=== PATIENT | female | born 1955 | race Caucasian/White ===

== ENCOUNTER → 2016-11-07 | Outpatient (CLI) | payer OTHER ==
[~2016-11-07] MED LIST: APIX1TAB3 PO; ATOR10TA88 PO; HYDR25TA5 PO
--- NOTE | 2016-11-09 14:07 | MAMMOGRAPHY REPORT ---
THIS REPORT HAS BEEN AMENDED. BILATERAL DIGITAL SCREENING MAMMOGRAM TOMOSYNTHESIS WITH CAD: 11/07/2016 CLINICAL HISTORY: Routine screening examination. TECHNIQUE: Breast tomosynthesis in addition to standard 2D mammography was performed. Current study was also evaluated with a Computer Aided Detection (CAD) system. COMPARISON: No prior exams were available for comparison. BREAST COMPOSITION: There are scattered areas of fibroglandular density in both breasts. FINDINGS: There are tiny subcentimeter circumscribed masses scattered in the breasts. Given the num erous bilateral circumscribed nature this is considered a benign mammographic pattern. There are a few benign-appearing microcalcifications. No suspicious spiculated or irregular mass, architectural distortion or cluster of suspicious microcalcifications is seen. IMPRESSION: ACR BI-RADS CATEGORY 1: NEGATIVE There is no mammographic evidence of malignancy. Prior outside mammograms are currently being reque sted and if obtained they will be reviewed, compared to the current exam to assess for any more subt le changes, and an addendum will be made to this report. Otherwise, a 1 year screening mammogram is recommended. The patient will receive written notification of the results. Approximately 10% of breast cancers are not detected with mammography. A negative mammographic repor t should not delay biopsy if a clinically suggestive mass is present. Ruthie Guerra M.D. ay/:11/08/2016 21:42:21 Director Nurses' Registry: Yocasta MARVIN(Irina)(Sudeep), [facility] letter sent: Normal 10/17 BI-RADS Code: ACR BI-RADS Category 1: Negative AMENDMENT: 11/15/2016 Ruthie Guerra M.D. Prior outside mammograms from [email or web address] dated 12/23/2011 and 04/12/2013, [facility] dated 05/09/2014 and [facility] dated 10/30/2015 became available for review. There has been no significant interval change compared to the outside exams. No suspicious mass, architectural dis tortion, developing asymmetry or cluster of suspicious micro-calcifications is seen. Recommend foll ow-up in 1 year for routine mammography. Amended BI-RADS: ACR BI-RADS Category 1: Negative letter sent: Normal 2
== END | disposition home or self-care (01) ==
LOC: C.MAMM 13:38 → MERGE 13:38
PROVIDERS: ATTEND Obstetrics & Gynecology
DX: Z12.31 Encounter for screening mammogram for malignant neoplasm of breast (principal)

== ENCOUNTER → 2017-01-13 | Outpatient (CLI) | payer OTHER ==
[~2017-01-13] MED LIST changes: +ATOR10TA82 PO; -ATOR10TA88 PO
== END | disposition home or self-care (01) ==
LOC: C.PAPS 10:47 → MERGE 10:47
PROVIDERS: ATTEND Obstetrics & Gynecology
DX: Z01.419 Encounter for gynecological examination (general) (routine) without abnormal findings (principal)

== ENCOUNTER → 2017-04-14 | Outpatient (CLI) | payer OTHER ==
[~2017-04-14] MED LIST changes: -ATOR10TA82 PO; +ATOR10TA88 PO
== END | disposition home or self-care (01) ==
LOC: C.LAB1850 13:45 → MERGE 13:45
PROVIDERS: ATTEND Internal Medicine Cardiovascular Disease
DX: I10 Essential (primary) hypertension (principal); R55 Syncope and collapse; R00.2 Palpitations

== ENCOUNTER 2017-06-14 11:53 | Emergency (ER) | payer BC, OTHER ==
[~2017-06-14] VITALS: Ht 162.6 cm; Wt 75.4 kg
[2017-06-14 12:08] VITALS: TEMP 37.1; Ht 162.6 cm; Wt 75.4 kg
[2017-06-14] MEDS ORDERED: DILTIAZEM BOLUS / DRIP IV STA (12:22)
[2017-06-14] MEDS ORDERED: SODIUM CHLORIDE 0.9% 1000ML 1,000 ML IV STA (12:22)
[2017-06-14] MEDS ORDERED: SODIUM CHLORIDE 0.9% 1000ML 500 ML IV STA (12:22)
[2017-06-14 12:25] VITALS: O2SAT 95
--- NOTE | 2017-06-14 12:28 | EMERGENCY ROOM VISIT NOTE ---
History Report prepared by Ritchie: Carrington Carrillo Under the Supervision of: Dr. Silvestre Katz M.D. First contact with patient: 12:15 Chief Complaint: CARDIAC ASSESSMENT Stated Complaint: new onset af Nursing Triage Summary: Atrial fib with rapid RVR. Patient had endoscopy today and post procedure patient went into AFIB with RVR. Patient has a hx diagnosed in April and has been on Eliquis since then. Patient has not taken Eliquis since Monday night for the endoscopy today. No CP or SOB. History of Present Illness The patient is a 62 year old female who presents to the Emergency Room with an episode of atrial fibrillation that occurred prior to arrival this morning. The patient came from [facility] end[facility] and, post-procedure, the patient went into atrial fibrillation with RVR. She was then sent here for evaluation. The patient says that she was diagnosed with atrial fibrillation in April, and was put on Eliquis. The last dose she has taken of the Eliquis was 3 days ago. She adds that she is not always in atrial fibrillation. The patient states that she can sometimes tell when she is in atrial fibrillation, as her heart pounds, and she gets nauseous with a headache. She notes that she has an appointment with Dr. Magallon of [facility] cardiology in 2 weeks. The patient adds that she is short of breath, most likely due to anxiety. She denies any chest pain. Source of History: patient Onset: Prior to arrival this morning Position: other (heart) Quality: other (atrial fibrillation with RVR) Timing: other (episode) Associated Symptoms: + headache, + SOB (most likely due to anxiety), + nausea, No chest pain Note: Associated symptoms: Heart pounding. Short of breath most likely due to anxiety. Review of Systems See HPI for pertinent positives & negatives. A total of 10 systems reviewed and were otherwise negative. Past Medical & Surgical Medical Problems: (1) Afib Family History FHx: arrhythmia Social History Smoking Status: Never Smoker Marital Status: single Housing Status: lives with family Current/Historical Medications Scheduled Apixaban (Eliquis), 5 MG PO BID Atorvastatin (Lipitor), 10 MG PO DAILY Hydrochlorothiazide (Hydrochlorothiazide), 25 MG PO DAILY Allergies Coded Allergies: Erythromycin (Unverified Allergy, Severe, HIVES, 06/14/17) Penicillins (Unverified Allergy, Severe, HIVES, 06/14/17) Tetracycline (Unverified Allergy, Severe, HIVES, 06/14/17) Propoxyphene (Unverified Adverse Reaction, Severe, DIZZY, 06/14/17) Sulfa Antibiotics (Unverified Adverse Reaction, Severe, INFLAMMATION, 06/14) Uncoded Allergies: IV CONTRAST DYES (Allergy, Severe, INTENSE HEAT FROM THE INSIDE OUT, ) LAYTEX (Adverse Reaction, Unknown, RASH, 06/14/17) Physical Exam Vital Signs Date Time Temp Pulse Resp B/P (MAP) Pulse Ox O2 Delivery O2 Flow Rate FiO2 06/14/17 14:21 90 21 112/68 99 Room Air 06/14/17 13:56 85 17 112/75 98 Room Air 06/14/17 13:38 81 06/14/17 13:23 84 20 121/75 96 Room Air 06/14/17 12:25 95 Room Air 06/14/17 12:18 84 24 130/77 97 Room Air 06/14/17 12:12 145 06/14/17 12:08 37.1 119 24 140/122 97 Room Air 06/14/17 12:03 97 Physical Exam GENERAL: Patient is in no acute distress. HEENT: No acute trauma, normocephalic atraumatic, mucous membranes moist, no nasal congestion, no scleral icterus. NECK: No stridor, no adenopathy, no meningismus, trachea is midline. LUNGS: Clear to auscultation bilaterally, no wheeze, no rhonchi, breath sounds equal. HEART: Without murmurs gallops or rubs, regular rate and rhythm. ABDOMEN: Soft, nontender, bowel sounds positive, no hernias, no peritonitis. EXTREMITIES: No cyanosis or edema, full range of motion of all the joints without pain or difficulty, no signs for acute trauma. NEUROLOGIC: Oriented x 3, no acute motor or sensory deficits, no focal weakness. SKIN: No rash, no jaundice, no diaphoresis. Medical Decision & Procedures ER Provider Diagnostic Interpretation: X-ray results as stated below per interpretation by me and the radiologist: CHEST ONE VIEW PORTABLE HISTORY: 62 years-old Female EVALUATE ALTERED MENTAL STATUS/WEAKNESS COMPARISON: None available TECHNIQUE: Portable upright AP view of the chest. FINDINGS: The cardiac, mediastinal and hilar silhouettes are within normal limits. There is minimal atherosclerosis of the aorta. There is no pneumothorax or pleural effusion. Linear subsegmental opacities of the left lung base are seen suggesting atelectasis. The bones appear grossly intact. IMPRESSION: Subsegmental atelectasis of the left lung base without acute cardiopulmonary process. The above report was generated using voice recognition software. It may contain grammatical, syntax or spelling errors. Electronically signed by: Kt Ohara M.D. 06/14/2017 12:42 PM Dictated Date/Time: 06/14/2017 12:41 PM Laboratory Results 06/14/17 12:05 Red Blood Count 4.49, Mean Corpuscular Volume 90.0, Mean Corpuscular Hemoglobin 31.4, Mean Corpuscular Hemoglobin Concent 34.9, Mean Platelet Volume 9.6, Neutrophils (%) (Auto) 60.8, Lymphocytes (%) (Auto) 27.6, Monocytes (%) (Auto) 9.9, Eosinophils (%) (Auto) 1.1, Basophils (%) (Auto) 0.4, Neutrophils # (Auto) 3.30, Lymphocytes # (Auto) 1.50, Monocytes # (Auto) 0.54, Eosinophils # (Auto) 0.06, Basophils # (Auto) 0.02 06/14/17 12:05 Test 06/14/17 12:05 White Blood Count 5.43 K/uL (4.8-10.8) Red Blood Count 4.49 M/uL (4.2-5.4) Hemoglobin 14.1 g/dL (12.0-16.0) Hematocrit 40.4 % (37-47) Mean Corpuscular Volume 90.0 fL (80-100) Mean Corpuscular Hemoglobin 31.4 pg (25-34) Mean Corpuscular Hemoglobin Concent 34.9 g/dl (32-36) Platelet Count 286 K/uL (130-400) Mean Platelet Volume 9.6 fL (7.4-10.4) Neutrophils (%) (Auto) 60.8 % Lymphocytes (%) (Auto) 27.6 % Monocytes (%) (Auto) 9.9 % Eosinophils (%) (Auto) 1.1 % Basophils (%) (Auto) 0.4 % Neutrophils # (Auto) 3.30 K/uL (1.4-6.5) Lymphocytes # (Auto) 1.50 K/uL (1.2-3.4) Monocytes # (Auto) 0.54 K/uL (0.11-0.59) Eosinophils # (Auto) 0.06 K/uL (0-0.5) Basophils # (Auto) 0.02 K/uL (0-0.2) RDW Standard Deviation 40.7 fL (36.4-46.3) RDW Coefficient of Variation 12.5 % (11.5-14.5) Immature Granulocyte % (Auto) 0.2 % Immature Granulocyte # (Auto) 0.01 K/uL (0.00-0.02) Prothrombin Time 11.3 SECONDS (9.0-12.0) Prothromb Time International Ratio 1.1 (0.9-1.1) Activated Partial Thromboplast Time 28.8 SECONDS (21.0-31.0) Partial Thromboplastin Ratio 1.1 Anion Gap 6.0 mmol/L (3-11) Est Creatinine Clear Calc Drug Dose 72.5 ml/min Estimated GFR () 92.3 Estimated GFR (Non- 79.7 BUN/Creatinine Ratio 12.8 (10-20) Calcium Level 8.8 mg/dl (8.5-10.1) Magnesium Level 2.2 mg/dl (1.8-2.4) Total Bilirubin 0.6 mg/dl (0.2-1) Aspartate Amino Transf (AST/SGOT) 21 U/L (15-37) Alanine Aminotransferase (ALT/SGPT) 22 U/L (12-78) Alkaline Phosphatase 92 U/L (45-117) Troponin I < 0.015 ng/ml (0-0.045) Total Protein 7.5 gm/dl (6.4-8.2) Albumin 3.6 gm/dl (3.4-5.0) Globulin 3.9 gm/dl (2.5-4.0) Albumin/Globulin Ratio 0.9 (0.9-2) Thyroid Stimulating Hormone (TSH) 0.911 uIu/ml (0.300-4.500) Laboratory results reviewed by me. Medications Administered Medications (Trade) Dose Ordered Sig/Corby Route Start Time Stop Time Status Last Admin Dose Admin Sodium Chloride 500 ml @ 999 mls/hr Q31M STAT IV 06/14/17 12:22 06/14/17 12:52 DC 06/14/17 12:35 999 MLS/HR Sodium Chloride 1,000 ml @ 200 mls/hr Q5H STAT IV 06/14/17 12:22 06/14/17 17:21 06/14/17 12:22 200 MLS/HR Potassium Chloride (Klor-Con M10) 40 meq NOW STAT PO 06/14/17 13:23 06/14/17 13:24 DC 06/14/17 14:00 40 MEQ Sodium Chloride 500 ml @ 999 mls/hr Q31M STAT IV 06/14/17 13:23 06/14/17 13:53 DC 06/14/17 13:30 999 MLS/HR ECG Indication: nausea Rate (beats per minute): 114 Rhythm: other (rapid afib) Findings: no acute ischemic change, no ectopy, other (nonspecific ST change) Change: Second ECG: Normal sinus rhythm at 82 bpm, nonspecific ST change, no ectopy. ED Course 1220: The patient was evaluated in room C2B. A complete history and physical exam was performed. 1222: Ordered NSS 1000 ml @ 200 mls/hr IV, NSS 500 ml @ 999 mls/hr IV. 1323: Ordered Klor-Con M10 40 meq PO. 1406: I reevaluated the patient and she is feeling fine and in sinus rhythm. 1411: I discussed the patient with Dr. Magallon - [facility] cardiology - he has an appointment for her at 1600 today, and we will discharge the patient to the appointment. 1417: Reevaluated the patient and she is resting comfortably. Discussed results and discharge instructions: she verbalized understanding and agreement. The patient is ready for discharge. Medical Decision Differential diagnosis includes but is not limited to atrial fibrillation or atrial flutter, dehydration, electrolyte imbalance, thyroid disorder, LA, cardiac ischemia, infection. There is no leukocytosis or concerning anemia. Potassium slightly low, no kidney failure. No hepatitis. The patient's thyroid appears to be functioning within normal limits. EKG shows a rapid A. fib without any acute ischemia. Cardiac enzyme testing times one is not consistent with acute cardiac injury. Chest x-ray does not show CHF or pneumonia, no mediastinal widening. The patient was breaking in and out of atrial fibrillation. She was asymptomatic. She was given IV saline, oral potassium. She is now in a sinus rhythm, she looks and feels well. She has not required any type of antiarrhythmic. I discussed the case with Dr. Magallon of cardiology. The patient is going to be seen in their office in one hour. She is stable for discharge. She was told the results of all her testing. In short, her A. fib has spontaneously resolved. Medication Reconcilliation Current Medication List: was personally reviewed by me Blood Pressure Screening Patient's blood pressure: Normal blood pressure Consults Time Called: 1408 Consulting Physician: Dr. Naun CASTELLANOS cardiology Returned Call: 1411 I discussed the patient with Dr. Naun CASTELLANOS cardiology - he has an appointment for her at 1600 today, and we will discharge the patient to the appointment. Impression Primary Impression: Rapid atrial fibrillation Scribe Attestation The scribe's documentation has been prepared under my direction and personally reviewed by me in its entirety. I confirm that the note above accurately reflects all work, treatment, procedures, and medical decision making performed by me. Departure Information Dispostion Home / Self-Care Referrals Jhon Magallon MD Forms IMPORTANT VISIT INFORMATION Patient Instructions My [facility] Additional Instructions report to the cardiology office today at 4 pm return for any return of symptoms stay well hydrated
[2017-06-14] MEDS ORDERED: DILTIAZEM HCL INJ 125 MG in DEXTROSE 5% 100ML IV PRN (12:30)
--- NOTE | 2017-06-14 12:44 | DIAGNOSTIC IMAGING REPORT ---
CHEST ONE VIEW PORTABLE HISTORY: 62 years-old Female EVALUATE ALTERED MENTAL STATUS/WEAKNESS COMPARISON: None available TECHNIQUE: Portable upright AP view of the chest. FINDINGS: The cardiac, mediastinal and hilar silhouettes are within normal limits. There is minimal atherosclerosis of the aorta. There is no pneumothorax or pleural effusion. Linear subsegmental opacities of the left lung base are seen suggesting atelectasis. The bones appear grossly intact. IMPRESSION: Subsegmental atelectasis of the left lung base without acute cardiopulmonary process. The above report was generated using voice recognition software. It may contain grammatical, syntax or spelling errors. Electronically signed by: Kt Ohara M.D. 06/14/2017 12:42 PM Dictated Date/Time: 06/14/2017 12:41 PM
[2017-06-14] MEDS ORDERED: PATIENT'S ALLERGY INFO NEEDS ENTERED SCH (12:45)
[2017-06-14 13:02] LABS: BASO % 0.4 %; BASO ABS # 0.02 K/uL (0-0.2); COMPLETE YES; EOS % 1.1 %; HEMATOCRIT 40.4 % (37-47); IG% 0.2 %; INR 1.1 (0.9-1.1); LYMPH % 27.6 %; MEAN CORPUSCULAR HEMOGLOBIN 31.4 pg (25-34); MEAN CORPUSCULAR HGB CONC 34.9 g/dl (32-36); MEAN PLATELET VOLUME 9.6 fL (7.4-10.4); MONO % 9.9 %; NEUT % 60.8 %; PARTIAL THROMBOPLASTIN RATIO 1.1; PLATELET COUNT 286 K/uL (130-400); PROTHROMBIN TIME (PATIENT) 11.3 SECONDS (9.0-12.0); RED BLOOD COUNT 4.49 M/uL (4.2-5.4); WHITE BLOOD COUNT 5.43 K/uL (4.8-10.8)
[2017-06-14 13:10] LABS: ALT/SGPT 22 U/L (12-78); BLOOD UREA NITROGEN 10 mg/dl (7-18); BUN/CREATININE RATIO 12.8 (10-20); CALCIUM 8.8 mg/dl (8.5-10.1); CARBON DIOXIDE 31 mmol/L (21-32); CHLORIDE 98 mmol/L (98-107); CREATININE 0.79 mg/dl (0.60-1.20); GLUCOSE 148 mg/dl (70-99); MAGNESIUM 2.2 mg/dl (1.8-2.4); POTASSIUM 3.1 mmol/L (3.5-5.1); SODIUM 135 mmol/L (136-145)
[2017-06-14 13:20] LABS: ALB/GLOB RATIO 0.9 (0.9-2); ALKALINE PHOSPHATASE 92 U/L (45-117); AST/SGOT 21 U/L (15-37); THYROID STIMULATING HORMONE 0.911 uIu/ml (0.300-4.500)
[2017-06-14] MEDS ORDERED: SODIUM CHLORIDE 0.9% 500ML 500 ML IV STA (13:23)
[2017-06-14] MEDS ORDERED: POTASSIUM CHLORIDE 10 MEQ TABCR PO STA (13:23)
[2017-06-14] MEDS ORDERED: APIX1TAB3 PO (13:31)
[2017-06-14] MEDS ORDERED: HYDR25TA5 PO (13:31)
[2017-06-14] MEDS ORDERED: ATOR10TA88 PO (13:31)
[2017-06-14 14:21] VITALS: BP 112/68; PULSE 90; O2SAT 99
== END 2017-06-14 14:47 | disposition home or self-care (01) ==
LOC: EDBD 11:53 → C.EDC 11:55
DX: I48.91 Unspecified atrial fibrillation (principal); Z79.899 Other long term (current) drug therapy

== ENCOUNTER → 2017-06-14 | Outpatient (CLI) | payer OTHER ==
[2017-06-14 14:01] LABS: BLOOD UREA NITROGEN 11 mg/dl (7-18); BUN/CREATININE RATIO 13.9 (10-20); CALCIUM 8.7 mg/dl (8.5-10.1); CARBON DIOXIDE 30 mmol/L (21-32); CHLORIDE 97 mmol/L (98-107); CREATININE 0.77 mg/dl (0.60-1.20); GLUCOSE 204 mg/dl (70-99); POTASSIUM 2.6 mmol/L (3.5-5.1); SODIUM 136 mmol/L (136-145)
--- NOTE | 2017-06-30 09:32 | CODING QUERY NO DIAGNOSIS ---
TREATMENT RENDERED WITHOUT A DIAGNOSIS : 05/04/1754 To promote full compliance with coding requirements relating to patient care, physician participation is requested in all cases of boat designer uncertainty. Please assist us with providing a diagnosis/symptom for the test(s) below: A diagnosis/symptom was not documented on your Order. A valid diagnosis/symptom is required to bill all insurances. Please remember that we are unable to code a diagnosis of rule out, probable, possible, questionable, or suspected. Tests that require a diagnosis: DOS: 06/14/17 * MAGNESIUM DIAGNOSIS: * PARTIAL RENAL PROFILE DIAGNOSIS: Provider Signature: Date: Thank you Yvonne Herrera Health Information Management Once completed, please kindly fax back to [phone] For questions please call [phone]
== END | disposition home or self-care (01) ==
LOC: MERGE 12:28 → C.LABSPEC 12:28
PROVIDERS: ATTEND Internal Medicine Gastroenterology
DX: I48.91 Unspecified atrial fibrillation (principal)

== ENCOUNTER → 2017-07-03 | Outpatient (CLI) | payer OTHER ==
[2017-07-03 12:19] LABS: BLOOD UREA NITROGEN 20 mg/dl (7-18); BUN/CREATININE RATIO 31.2 (10-20); CALCIUM 9.3 mg/dl (8.5-10.1); CARBON DIOXIDE 30 mmol/L (21-32); CHLORIDE 107 mmol/L (98-107); CREATININE 0.65 mg/dl (0.60-1.20); GLUCOSE 92 mg/dl (70-99); POTASSIUM 4.1 mmol/L (3.5-5.1); SODIUM 143 mmol/L (136-145)
== END | disposition home or self-care (01) ==
LOC: C.LAB1850 10:21
PROVIDERS: ATTEND Internal Medicine Cardiovascular Disease
DX: I10 Essential (primary) hypertension (principal); R00.2 Palpitations; I48.91 Unspecified atrial fibrillation; E87.6 Hypokalemia

== ENCOUNTER → 2017-10-10 | Outpatient (CLI) | payer OTHER ==
[~2017-10-10] MED LIST changes: +ATOR10TA82 PO; -ATOR10TA88 PO
== END | disposition home or self-care (01) ==
LOC: C.LAB1850 09:44
PROVIDERS: ATTEND Family Medicine
DX: Z11.59 Encounter for screening for other viral diseases (principal)

== ENCOUNTER → 2017-11-08 | Outpatient (CLI) | payer OTHER ==
--- NOTE | 2017-11-08 15:41 | MAMMOGRAPHY REPORT ---
BILATERAL DIGITAL SCREENING MAMMOGRAM TOMOSYNTHESIS WITH CAD: 11/08/2017 CLINICAL HISTORY: Routine screening. Patient has no complaints. TECHNIQUE: Breast tomosynthesis in addition to standard 2D mammography was performed. Current study was also evaluated with a Computer Aided Detection (CAD) system. COMPARISON: Comparison is made to exams dated: 05/09/2014 mammogram, 04/12/2013 mammogram, 12/23/2011 ma mmogram, 11/07/2016 mammogram, and 10/30/2015 mammogram - [facility]. BREAST COMPOSITION: There are scattered areas of fibroglandular density in both breasts. FINDINGS: No suspicious masses, calcifications, or areas of architectural distortion are noted in ei ther breast. There has been no significant interval change compared to prior exams. A linear scar ma rker denotes a scar on the left upper outer breast. IMPRESSION: ACR BI-RADS CATEGORY 2: BENIGN There is no mammographic evidence of malignancy. A 1 year screening mammogram is recommended. The pa tient will receive written notification of the results. Approximately 10% of breast cancers are not detected with mammography. A negative mammographic report should not delay biopsy if a clinically suggestive mass is present. Margaret Morales M.D. /:11/08/2017 12:36:48 Perfect Binder Feeder Offbearer: Drea MARVIN(Irina)(M), [facility] letter sent: Normal 1/2 BI-RADS Code: ACR BI-RADS Category 2: Benign
== END | disposition home or self-care (01) ==
LOC: C.MAMM 10:55 → MERGE 11:10
PROVIDERS: ATTEND Obstetrics & Gynecology
DX: Z12.31 Encounter for screening mammogram for malignant neoplasm of breast (principal)

== ENCOUNTER → 2018-06-01 | Outpatient (CLI) | payer OTHER ==
[~2018-06-01] MED LIST changes: +ASCO10003 PO; +CHOL20007 PO; +EPP3/2 IM; +FLEC50TA20 PO; +METO50TA16 PO; +MOME220A INH; +MONT1TAB3 PO; +MULT-1027 PO; +OMEG100046 PO; +VNTHFA/IN INH
[2018-06-01 15:00] LABS: HEMATOCRIT 43.3 % (37-47); HEMOGLOBIN 14.7 g/dL (12.0-16.0); MEAN CELL VOLUME 93.7 fL (80-100); MEAN CORPUSCULAR HEMOGLOBIN 31.8 pg (25-34); MEAN CORPUSCULAR HGB CONC 33.9 g/dl (32-36); MEAN PLATELET VOLUME 10.5 fL (7.4-10.4); PLATELET COUNT 267 K/uL (130-400); RED CELL DISTRIBUTION WIDTH CV 13.9 % (11.5-14.5); RED CELL DISTRIBUTION WIDTH SD 46.9 fL (36.4-46.3); WHITE BLOOD COUNT 8.94 K/uL (4.8-10.8)
[2018-06-01 15:12] LABS: BLOOD UREA NITROGEN 25 mg/dl (7-18); CALCIUM 9.2 mg/dl (8.5-10.1); CARBON DIOXIDE 26 mmol/L (21-32); CREATININE 0.88 mg/dl (0.60-1.20); GLUCOSE 134 mg/dl (70-99); POTASSIUM 3.9 mmol/L (3.5-5.1); SODIUM 141 mmol/L (136-145)
== END | disposition home or self-care (01) ==
LOC: C.LAB1850 13:53
PROVIDERS: ATTEND Internal Medicine Cardiovascular Disease
DX: I48.91 Unspecified atrial fibrillation (principal)

== ENCOUNTER 2019-09-25 09:54 | Inpatient (IN) ==
--- NOTE | 2019-08-26 12:48 | PAT Medication Instructions ---
Medication Instructions Date of Service August 26, 2019 Home Medications Medication Instructions Recorded apixaban 5 mg tablet 5 mg PO BID #180 tab 07/03/19 atorvastatin 10 mg tablet 10 mg PO QAM #90 tab 07/03/19 flecainide 50 mg tablet 50 mg PO Q12 #180 tab 07/03/19 metoprolol tartrate 50 mg tablet 50 mg PO BID #180 tab 07/03/19 ascorbic acid (vitamin C) 500 mg PO QAM 02/16/19 [History Confirmed 08/21/19] cholecalciferol (vitamin D3) [Vitamin D3] 3,000 unit PO QAM 02/16/19 [History Confirmed 08/21/19] epinephrine [EpiPen] 0.3 mg IM UD PRN 02/16/19 [History Confirmed 08/21/19] magnesium 250 mg PO QAM 02/16/19 [History Confirmed 08/21/19] mometasone [Asmanex Twisthaler] 2 puff INHALATION QAM 02/16/19 [History Confirmed 08/21/19] montelukast [Singulair] 10 mg PO PM 02/16/19 [History Confirmed 08/21/19] multivitamin 1 tab PO QPM 02/16/19 [History Confirmed 08/21/19] omega 6-prv-lvl-fish oil [Fish Oil] 1 cap PO QAM 02/16/19 [History Confirmed 08/21/19] levalbuterol HFA 45 mcg/actuation aerosol inhaler 1 puffs INH Q4H PRN apixaban 5 mg tablet 5 mg PO BID #180 tab 07/03/19 [Rx Confirmed 08/21/19] atorvastatin 10 mg tablet 10 mg PO QAM #90 tab 07/03/19 [Rx Confirmed 08/21/19] flecainide 50 mg tablet 50 mg PO Q12 #180 tab 07/03/19 [Rx Confirmed 08/21/19] metoprolol tartrate 50 mg tablet 50 mg PO BID #180 tab 07/03/19 [Rx Confirmed 08/21/19] famotidine 20 mg PO BID 08/21/19 [History Confirmed 08/21/19] Continue as directed epinephrine [EpiPen] 0.3 mg IM UD PRN (if needed) ASK your prescriber and surgeon apixaban 5 mg tablet 5 mg PO BID (in order for spinal anesthesia, Apixaban/Eliquis needs to be stopped 72 hours/3 days before surgery. Please check if okay with doctor that prescribes this to you) STOP taking 2 weeks before surgery (or as soon as possible if surgery is within 2 weeks) omega 4-vnv-qsw-fish oil [Fish Oil] 1 cap PO QAM 02/16/19 [History Confirmed 08/21/19] DO NOT take the morning of surgery ascorbic acid (vitamin C) 500 mg PO QAM 02/16/19 [History Confirmed 08/21/19] cholecalciferol (vitamin D3) [Vitamin D3] 3,000 unit PO QAM 02/16/19 [History Confirmed 08/21/19] magnesium 250 mg PO QAM 02/16/19 [History Confirmed 08/21/19] famotidine 20 mg PO BID 08/21/19 [History Confirmed 08/21/19] Take morning of surgery With a small sip of water, OTHERWISE NOTHING TO EAT OR DRINK AFTER MIDNIGHT: mometasone [Asmanex Twisthaler] 2 puff INHALATION QAM 02/16/19 [History Confirmed 08/21/19] levalbuterol HFA 45 mcg/actuation aerosol inhaler 1 puffs INH Q4H PRN (if needed) atorvastatin 10 mg tablet 10 mg PO QAM #90 tab 07/03/19 [Rx Confirmed 08/21/19] flecainide 50 mg tablet 50 mg PO Q12 #180 tab 07/03/19 [Rx Confirmed 08/21/19] metoprolol tartrate 50 mg tablet 50 mg PO BID #180 tab 07/03/19 [Rx Confirmed 08/21/19] Take evening before surgery montelukast [Singulair] 10 mg PO PM 02/16/19 [History Confirmed 08/21/19] multivitamin 1 tab PO QPM 02/16/19 [History Confirmed 08/21/19] levalbuterol HFA 45 mcg/actuation aerosol inhaler 1 puffs INH Q4H PRN (if needed) flecainide 50 mg tablet 50 mg PO Q12 #180 tab 07/03/19 [Rx Confirmed 08/21/19] metoprolol tartrate 50 mg tablet 50 mg PO BID #180 tab 07/03/19 [Rx Confirmed 08/21/19] famotidine 20 mg PO BID 08/21/19 [History Confirmed 08/21/19] Other Notes If you have any questions please call us at [phone] or [phone] or [phone] or [phone]
--- NOTE | 2019-08-26 13:52 | Anesthesiology Consultation ---
Date of Service August 26, 2019 Assessment & Plan (1) Encounter for pre-operative examination: - Awaiting review preop testing (labs, CXR). - Cardiology: 07/15/19: "Symptoms are well controlled on flecainide and metoprolol. Continue anticoagulation for stroke risk reduction." - Apixaban/Eliquis instructions: patient made aware that in order for spinal anesthesia, Apixaban/Eliquis needs to be held 72 hours/3 days prior to surgery. Patient voiced understanding/will check if okay with prescriber. History Surgery Operation Date: 09/25/19 07:15 Proposed Procedures p Left Knee Total Knee Arthroplasty - Shar Yepez MD Height/Weight Height: 5 ft 4 in Weight: 77.3 kg Allergies Allergy/AdvReac Type Severity Reaction Status Date / Time banana Allergy Severe ANAPHYLAXIS Verified 08/21/19 13:25 bee venom protein (honey bee) Allergy Severe ANAPHYLAXIS Verified 08/21/19 13:25 chocolate flavor Allergy Severe ANAPHYLAXIS Verified 08/21/19 13:25 erythromycin base Allergy Severe HIVES Unverified 08/21/19 13:25 Penicillins Allergy Severe HIVES Unverified 08/21/19 13:25 shellfish derived Allergy Severe FEET/HAND Verified 08/26/19 13:49 SWELLING tetracycline Allergy Severe HIVES Unverified 08/21/19 13:25 venom-wasp protein Allergy Severe ANAPHYLAXIS Verified 08/21/19 13:25 gadobutrol [From Gadavist] Allergy Mild HIVES, Unverified 08/26/19 13:49 SOB- IV CONTRAST DYE latex Allergy Mild RASH Verified 08/21/19 13:25 propoxyphene AdvReac Severe DIZZY, Unverified 08/21/19 13:25 VERTIGO Sulfa (Sulfonamide AdvReac Severe "INFLAMMATI Unverified 08/26/19 13:49 Antibiotics) ON" HORNETS Allergy Severe ANAPHYLAXIS Uncoded 08/21/19 13:25 IV CONTRAST DYES Allergy Severe HIVES, Uncoded 08/26/19 13:49 SOB- IV CONTRAST DYE PEANUTS Allergy Severe ANAPHYLAXIS Uncoded 08/21/19 13:26 Pork Allergy Severe LEGS/FEET Uncoded 08/26/19 13:49 SWELLING SOY AdvReac Severe VAGINAL Uncoded 08/26/19 13:49 HEMORRHAGE Medications Home Medications Medication Instructions Recorded Confirmed Last Taken ascorbic acid (vitamin C) 500 mg PO QAM 02/16/19 08/21/19 02/16/19 cholecalciferol (vitamin D3) 3,000 unit PO QAM 02/16/19 08/21/19 02/16/19 [Vitamin D3] epinephrine [EpiPen] 0.3 mg IM UD PRN 02/16/19 08/21/19 Unknown magnesium 250 mg PO QAM 02/16/19 08/21/19 02/15/19 mometasone [Asmanex Twisthaler] 2 puff INHALATION QAM 02/16/19 08/21/19 02/15/19 montelukast [Singulair] 10 mg PO PM 02/16/19 08/21/19 02/15/19 multivitamin 1 tab PO QPM 02/16/19 08/21/19 02/15/19 omega [id number] oil [Fish Oil] 1 cap PO QAM 02/16/19 08/21/19 02/16/19 levalbuterol HFA 45 mcg/actuation 1 puffs INH Q4H PRN gm 06/24/19 08/21/19 Unknown aerosol inhaler apixaban 5 mg tablet 5 mg PO BID #180 tab 07/03/19 08/21/19 Unknown atorvastatin 10 mg tablet 10 mg PO QAM #90 tab 07/03/19 08/21/19 Unknown flecainide 50 mg tablet 50 mg PO Q12 #180 tab 07/03/19 08/21/19 Unknown metoprolol tartrate 50 mg tablet 50 mg PO BID #180 tab 07/03/19 08/21/19 Unknown famotidine 20 mg PO BID 08/21/19 08/21/19 Unknown Past Medical History Medical History Migraine Asthma stable Atrial fibrillation paroxysmal GERD (gastroesophageal reflux disease) controlled Hiatal hernia Migraine hx Osteoarthritis Exercise / Class Metabolic Activity II 4-5 Yardwork/Stairs/Walk up hill (one flight of stairs (no chest pain/no sob)) Past Family History Family History Uncle Family history of diabetes mellitus Family hx of colon cancer Uncle Family history of diabetes mellitus Family hx of colon cancer Aunt Family hx of colon cancer Aunt Family hx of colon cancer Past Surgical History Surgical History History of appendectomy History of breast biopsy LEFT-BENIGN History of dilatation and curettage X MULTIPLE WITH COLD CONE BX History of laparotomy FOR OVARIAN CYST History of open reduction and internal fixation (ORIF) procedure RIGHT HIP AGE 4 Past Anesthesia History Other "Slow to wake." Sensitive to medications ("needs less meds than most people"). Similar reactions with mother and anesthesia. History of PONV History of PONV and Hx of Motion Sickness (occasional) Social History Smoking Status: Never smoker Do You Dip or Chew Tobacco: No Hx Alcohol Use: No Hx Substance Use: No Review of Systems Reflux controlled. Occasional palpitations. Patient denies chest pain, shortness of breath, dyspnea on exertion, cough, wheezing. Physical Exam Vital Signs VITALS BP 135/85 P 67 TEMP 98.1 SP02 96%RA RESP 18 PHYSICAL Full neck and c-spine range of motion. Full TMJ range of motion. TMD 3.5 finger breaths Mallampati Score 3 Dentition: intact Lungs: clear throughout to auscultation Cardiac: regular rate and rhythm, I/ systolic murmur Spine: normal Carotid arteries: negative bruit Extremities: no edema Testing Electrocardiogram Date: 01/07/19 SR at 77bpm. Echocardiogram Date: 04/26/17 EF 60-65%. No RWMA. Mild to moderate cLVH. Type 2 DD. Trace to mild MR. Stress Test Date: 11/14/17 Type: exercise Negative exercise stress ECHO/EKG for ischemia at 95% MPHR. No arrhythmia. No chest pain. EF 60-65%. Type I DD. Mild MR.
--- NOTE | 2019-08-26 14:57 | XRay Report ---
XR chest Pre-admission PA/Lat CLINICAL HISTORY: Preoperative chest COMPARISON STUDY: 06/14/2017 FINDINGS: The heart is the upper limits of normal in size. There is no failure. There is no focal pul monary consolidation. There are no pleural effusions.[ IMPRESSION: No active disease in the chest. Electronically signed by: Bryan Rosenberg M.D. 08/26/2019 2:56 PM
[2019-08-26 15:12] LABS: Basophils # (auto) 0.02 K/uL (0-0.2); Basophils % (auto) 0.4 %; Eosinophils # (auto) 0.12 K/uL (0-0.5); Eosinophils % (auto) 2.1 %; Hematocrit (blood only) 42.1 % (37-47); Hemoglobin 14.1 g/dL (12.0-16.0); Immature Granulocytes # (auto) 0.01 K/uL (0.00-0.02); Immature Granulocytes % (auto) 0.2 %; Lymphocytes # (auto) 1.65 K/uL (1.2-3.4); Lymphocytes % (auto) 28.9 %; Mean Corpuscular Hemoglobin 31.7 pg (25-34); Mean Corpuscular Hgb Conc 33.5 g/dL (32-36); Mean Corpuscular Volume 94.6 fL (80-100); Monocytes # (auto) 0.54 K/uL (0.11-0.59); Monocytes % (auto) 9.5 %; Neutrophils # (auto) 3.37 K/uL (1.4-6.5); Neutrophils % (auto) 58.9 %; Platelet Count 300 K/uL (130-400); RDW Coefficient of Variation 12.4 % (11.5-14.5); RDW Standard Deviation 42.5 fL (36.4-46.3); Red Blood Count 4.45 M/uL (4.2-5.4); White Blood Count 5.71 K/uL (4.8-10.8)
[2019-08-26 15:20] LABS: BUN Creatinine Ratio 26.5 (10-20); Calcium 9.4 mg/dl (8.5-10.1); Creatinine Clr Calc Pharmacy 75.2 ml/min; Est GFR (African American) 96.9; Est GFR (Non-African American) 83.6; Potassium 4.1 mmol/L (3.5-5.1)
[2019-08-26 15:22] LABS: INR 1.1 (0.9-1.1); Partial Thromboplastin Ratio 1.1; Partial Thromboplastin Time 29.8 Seconds (21.0-31.0); Prothrombin Time 10.9 Seconds (9.0-12.0)
--- NOTE | 2019-09-18 21:43 | History and Physical Report ---
DATE OF ADMISSION: 09/25/2019 CHIEF COMPLAINT: Left knee pain and discomfort and stiffness. HISTORY OF PRESENT ILLNESS: The patient is a 64-year-old female who is referred by my partner, Dr. Galvan for treatment of her knee. She has got a long history of bilateral knee pain and discomfort that has gradually gotten worse over time. The left knee is a bit worse than the right. She has been through extensive conservative treatment which has become less successful over time. The shots helped for about 4 weeks and that is about it. She limps when she walks, the more she walks, the more she limps, the more she hurts. She has pain throughout the day, but it gets worse as the day goes on. She has nighttime pain. She would now like to consider having her knees fixed. PAST MEDICAL HISTORY: Significant for: 1. Atrial fibrillation, on Eliquis and metoprolol, followed by Dr. Magallon. 2. Asthma. 3. Gastroesophageal reflux disease. 4. Osteoarthritis. PAST SURGICAL HISTORY: Previous surgeries include: 1. Skull fracture. 2. Appendectomy. 3. Cone biopsy. 4. Breast surgery. ALLERGIES: GADAVIST, LATEX, DARVON, TETRACYCLINE, SULFA, ERYTHROMYCIN, AND PENICILLIN, WHICH CAUSE HIVES. No respiratory problems. CURRENT MEDICINES: Include: 1. Eliquis 5 mg twice a day. 2. Metoprolol 50 mg twice a day. 3. Flecainide 50 mg twice daily. 4. Lipitor 10 mg daily. 5. Montelukast 10 mg a day. 6. Pepcid 40 mg twice a day. 7. Asmanex 110 mcg a day. 8. Vitamin C. 9. Vitamin D3. 10. Multivitamin. 11. Magnesium. SOCIAL HISTORY: A 64-year-old female. She is . Does not smoke or drink. FAMILY HISTORY: Noncontributory. REVIEW OF SYSTEMS: Significant for atrial fibrillation. Denies any current chest pain or shortness of breath. No history of DVT or PE. No known bleeding problems. She is on Eliquis. PHYSICAL EXAMINATION: GENERAL: Shows a pleasant, middle-aged female. Looks to be in pretty good health. HEENT: Benign. NECK: Supple, no lymphadenopathy. LUNGS: Clear to auscultation. HEART: Has a regular rate and rhythm. ABDOMEN: Soft, nontender, nondistended. EXTREMITIES: Grossly neurovascularly intact except as follows: Examination of both knees reveals patient walks with a waddling gait. She has got varus alignment to both knees. Examination of the left knee reveals a very stiff knee. She has got bony hypertrophy medially. Small knee effusion. Range of motion about 10 degrees short of full extension to about 90 degrees of flexion. No pain with hip motion. Examination of the right knee reveals varus alignment. She has bony hypertrophy medially. Small knee effusion. Range of motion is 5-110. No instability. No pain with hip motion. X-RAYS: X-rays of the left knee revealed advanced left knee DJD. She has got complete loss of medial joint space. She has got osteophytes off the medial femoral condyle and medial tibial plateau. She got similar, but less severe disease in her right knee. ASSESSMENT: A 64-year-old white female with advanced bilateral knee pain, degenerative joint disease, left side greater than right. Her knees are particularly stiff as well. She has failed conservative treatment and would like to consider knee surgery. PLAN: We are going to proceed with left knee replacement. The risks and benefits of this procedure were explained to the patient include but not limited to DVT, PE, , infection, neurological injury, vascular injury, bleeding problem, pain, limited range of motion, stiffness, failure to relieve symptoms, incomplete relief of symptoms, need for further surgery in future, etc. The patient understands and desires to proceed. Informed consent was obtained. As far as discharge plans, she is hoping to go to rehab. We will see whether she qualifies while she is in the hospital. If not, she might need to go to a correction facility, if she does not want to go straight home. She will hold her Eliquis 3 days preoperatively. We will start her prophylactic dose 24 hours postop. She does take metoprolol the morning of surgery along with her flecainide.
[~2019-09-25 09:54] MED LIST changes: +ACETAMINOPHEN 500 MG TAB PO SCH; -APIX1TAB3 PO; -ASCO10003 PO; -ATOR10TA82 PO; +BUPIVACAINE 0.5 % 5 MG/1 ML PF 10ML VIAL ONE; +BUPIVACAINE LIPOSOME/PF 266 MG, BUPIVACAINE/EPINEPHRINE 50 ML, SODIUM CHLORIDE 0.9% 30 ... INFIL SCH; +CEFAZOLIN 2000MG 2,000 MG/15 ML SYR IV SCH; -CHOL20007 PO; -EPP3/2 IM; +FAMOTIDINE 20 MG TAB PO SCH; -FLEC50TA20 PO; +GABAPENTIN 300 MG CAP PO SCH; -HYDR25TA5 PO; +LR 500ML BOLUS, THEN 15ML/HR IV SCH; +LR 60ML/HR IV SCH; -METO50TA16 PO; +METOCLOPRAMIDE HCL 10 MG TABLET PO SCH; -MOME220A INH; -MONT1TAB3 PO; -MULT-1027 PO; -OMEG100046 PO; +ROPIVACAINE 0.5% 5 MG/ML 30 ML VIAL ONE; +SODIUM CHLORIDE 0.9% 1000ML IV SCH; +TRANEXAMIC ACID 1,000 MG **IV Intra-op IV SCH; -VNTHFA/IN INH
--- NOTE | 2019-09-25 10:25 | History & Physical Bridge Note ---
Date of Service September 25, 2019 History & Physical Bridge Note I have examined the patient, reviewed the History & Physical and in the interval since the performance of the History & Physical I have noted the following changes of clinical significance: no changes noted
[2019-09-25] MEDS ORDERED: MIDAZOLAM HCL 1 MG/ML 2ML VIAL ONE (12:03)
[2019-09-25] MEDS ORDERED: ATROPINE SULFATE 0.1 MG/ML 10ML SYR IV PRN (12:16)
[2019-09-25] MEDS ORDERED: ONDANSETRON INJ 2 MG/ML 2 ML VIAL IV PRN (12:16)
[2019-09-25] MEDS ORDERED: ePHEDrine sulfate 50 MG/ML AMP IV PRN (12:16)
[2019-09-25] MEDS ORDERED: HYDROmorphone INJ 1 MG/ML SYRINGE IV PRN (12:16)
[2019-09-25] MEDS ORDERED: KETOROLAC 30 MG/ML VIAL IV PRN (12:16)
[2019-09-25] MEDS ORDERED: PROMETHAZINE HCL 6.25 MG in SODIUM CHLORIDE 0.9% 50 ML IV PRN (12:16)
[2019-09-25] MEDS ORDERED: BUPIVACAINE LIPOSOME 1.3% 266 MG/20 ML VIAL ONE (12:32)
[2019-09-25] MEDS ORDERED: SODIUM CHLORIDE 0.9% PF 50 ML VIAL ONE (12:32)
[2019-09-25] MEDS ORDERED: BUPIVACAINE 0.25% 30 ML VIAL ONE (12:32)
[2019-09-25] MEDS ORDERED: BACITRACIN INJ 50,000 UNIT VIAL ONE (12:32)
[2019-09-25] MEDS ORDERED: EPINEPHrine INJ 1 MG/ML AMP ONE (12:32)
[2019-09-25] MEDS ORDERED: LIDOCAINE HCL 2% 2 ML VIAL/AMP(20MG/ML) INFIL ONE (14:34)
[2019-09-25] MEDS ORDERED: PROPOFOL IV EMULSION 10 MG/ML 20 ML VIAL IV ONE (14:34)
--- NOTE | 2019-09-25 14:34 | Post Operative Brief Note ---
PG Immediate Post Op with CF Date of Surgery September 25, 2019 Pre & Post Diagnosis Operation Date: 09/25/19 12:30 Pre-Op Diagnosis: Left Knee Advanced Degenerative Joint Disease Post-Op Diagnosis: Left Knee Advanced Degenerative Joint Disease I identified the patient and participated in the time-out.: Yes Procedure Operation Date: 09/25/19 12:30 Actual Procedures p Left Total Knee Arthroplasty(Left) - Shar Yepez MD Surgeon Shar Ypeez MD Mold Builder Cristobal, PAC Estimated Blood Loss 50 Findings Consistent with Post-Op Diagnosis Fluids 1500 cc Specimens Specimen Description: A. Left Knee Bone and Tissue Drains Hart Catheter (A 16 Turkish LATEX-free hart catheter was inserted by GEOVANNA Marcus, without difficulty, clear yellow urine obtained, output to be monitored by Anesthesia.) Anesthesia Type Spinal MAC Complications none Disposition Accompanied Patient To Recovery: No Disposition: Recovery Room
--- NOTE | 2019-09-25 14:49 | Operative Report ---
Post Operative Report Pre & Post Diagnosis Operation Date: 09/25/19 12:30 Pre-Op Diagnosis: Left Knee Advanced Degenerative Joint Disease Post-Op Diagnosis: Left Knee Advanced Degenerative Joint Disease I identified the patient and participated in the time-out.: Yes Procedure Operation Date: 09/25/19 12:30 Actual Procedures p Left Total Knee Arthroplasty(Left) - Shar Yepez MD Surgeon Shar Yepez MD Turnstile Collector Cristobal, PAC Estimated Blood Loss 50 Findings Consistent with Post-Op Diagnosis Operative findings revealed advanced left knee DJD. She had extensive grade 4 changes of the medial and patellofemoral compartments with the eburnation in both areas. She had large posterior osteophytes and a very stiff knee with limited flexion at 15 degree flexion contracture. Fluids 1500 cc Specimens Left knee sent for pathology. Drains None. Anesthesia Type Spinal MAC Complications none Disposition Disposition: Recovery Room Indications Patient is a 64-year-old female with a long history of bilateral knee pain discomfort which is gradually gotten worse over time patient been through extensive conservative treatment which became less successful with time. X-rays show advanced bilateral knee DJD. Left side was worse than right. She elected to left total knee arthroplasty. Description of Procedure Operative implants consisted of: 1. Biomet Vanguard size 65 left posterior bifemoral component. 2. Biomet size 67 tibial tray. 3. 12 mm posterior bite polyethylene insert. 4. 31 x 8 all poly-patella. Patient was taken to the operating room identified and placed on the operating room table in supine position with all contact areas were properly padded. IV antibiotics were provided by anesthesia team. Spinal anesthetic and abductor canal block had been provided holding area. May catheter was placed in sterile fashion. The left thigh tourniquet was then placed. The left lower extremity was then prepped and draped in usual sterile fashion. Left leg was elevated and exsanguinated with use of an Esmarch interspace at 300 mmHg. An anterior approach left knee was then performed to longitudinal incision centered over the patella. Sharp dissection was carried through subcutaneous tissue down below the extensor mechanism. A medial parapatellar arthrotomy incision was made. Some subperiosteal dissection was carried out medially. The fat pad was dissected from beneath patella tendon. Lateral patellofemoral ligament was released. Patella was everted knee was flexed. The osteophytes taken off the distal femur. The ACL and PCL were then released from the distal femur and the tibia subluxated anteriorly. The external tibial alignment jig was then placed in the interface the tibia and adjusted 14 mm medially. Proximal tibial cut was made to remove about a millimeter bone from the most efficient aspect medial tibial plateau. This did take a fairly large piece off laterally. Some osteophytes were taken off medial and posterior medially. The tibia was sized to a size 67. Attention drawn the femur. The distal femur was then with a sharp drill. Intramedullary canal was suction. A left 5 degree valgus cutting guide was placed. This femoral cutting block was pinned in place. Distal femoral cut was made to take an additional 3 mm of bone off the distal femur. Femur was then sized to size 65. We did down size this slightly. The AP cutting block was pinned parallel to the epicondylar axis which was 5 degrees of external rotation. The anterior cut, anterior chamfer, posterior cut, posterior chamfer cuts were made. Box cutting guide was placed and adjusted slightly lateral and the box cut was made. The knee was flexed. The remnants of the medial lateral menisci were excised. The osteophytes were taken off the posterior aspect of the femur. A trial femoral component was placed but the tibial tray was pinned in maximum external rotation and drill and stem punch were used to create the defect in the proximal tip for the tibial tray. I then trialed the knee and the 12 mm insert fit most appropriately. Attention down the patella. The patella was cleaned of all soft tissues. Patella thickness measured 22 mm in thickness was cut down to 13 but was sized to a size 31 patella. Locals were drilled for 31 patella. Lateral osteophyte is moved. Patella button was placed. Knee was taken through range of motion and the patella tracked nicely with no thumbs test. Attention drawn to place the permanent components. All trial components were removed. A bone plug was placed in the disc femur limit blood loss put a double batch Pal[place]os G cement was mixed. [employer] Vanguard size 65 left posterior bifemoral component, a 67 tibial tray, 12 mm posterior bite polyethylene insert, and a 31 x 8 all poly- patella then cement in place. Knees brought into full extension until cement hardened. Final cement check was then performed. Attention then turned toward closing. The wound was irrigated extensively with copious amounts of pulsatile lavage solution. We did inject locally with 100 cc of combination of 20 cc of Exparel, 30 cc normal saline. 50 cc of quarter percent Marcaine with epinephrine. Patient did receive 1 g of tranexamic acid per the tourniquet was then let down for final tourniquet time 56 minutes. Hemostasis surgery select cautery. There was once again irrigated. Extensor macros then closed with combination 1 PDS suture #1 Vicryl suture in a [id number] fashion with extensive medical checked found to be intact with subcutaneous tissues then closed with 2 Dexon suture in a buried interrupted fashion skin was closed skin marcus. Leg was then cleaned dried and sterile dressing composed of Xeroform, 4 x 4's, sterile cast padding, Jack bandage were applied. Patient then transferred to the recovery room in stable condition. Patient tolerated procedure well and there were no complications. I attest to the content of the Intraoperative Record and any orders documented therein. Any exceptions are noted below.
--- NOTE | 2019-09-25 15:01 | Anesthesiology Progress Note ---
Date of Service September 25, 2019 Anesthesia Post Procedure Vital Signs Vital Signs: Temp Pulse Pulse Resp BP BP Pulse Ox 09/25/19 14:55 74 20 131/67 96 09/25/19 14:45 76 21 127/73 98 09/25/19 14:39 36.8 C 75 16 120/75 100 09/25/19 10:43 36.8 C 77 20 137/93 96 Pain Intensity Left Knee: Pain Intensity: 0 Transfer of Care Handoff Completed per policy Notes Mental Status: alert / awake / arousable Patient Amnestic to Procedure: Yes Nausea / Vomiting: adequately controlled Pain: adequately controlled Airway Patency, RR, SpO2: stable & adequate BP & HR: stable & adequate Hydration State: stable & adequate Neuraxial Anesthesia: was administered and sensory block is resolving Anesthetic Complications: no major complications apparent
--- NOTE | 2019-09-25 15:06 | XRay Report ---
XR knee LT 1 or 2V routine CLINICAL HISTORY: 64 years-old Female presenting with Surgical Post Op. TECHNIQUE: Frontal and crosstable lateral views of the left knee were obtained. COMPARISON: 08/01/2019. FINDINGS: There has been interval postsurgical changes of total left knee arthroplasty with patellar resurfacin g. Expected intra-articular and soft tissue emphysema. Overlying skin marcus noted. No periprostheti c fracture or lucency. No malalignment. IMPRESSION: Expected postsurgical changes status post total left knee arthroplasty with patellar resurfacing. Electronically signed by: Oren Rizo M.D. 09/25/2019 3:05 PM
[2019-09-25] MEDS ORDERED: NALOXONE HCL 0.4 MG/1 ML VIAL/CARP IV PRN (15:30)
[2019-09-25] MEDS ORDERED: bisacodyL 10 MG SUPP PR PRN (15:30)
[2019-09-25] MEDS ORDERED: MAGNESIUM HYDROXIDE SUSP 30 ML UDC PO PRN (15:30)
[2019-09-25] MEDS ORDERED: METOCLOPRAMIDE HCL INJ 5 MG/ML 2 ML VIAL IV PRN (15:30)
[2019-09-25] MEDS ORDERED: LEVALBUTEROL TARTRATE 15 GM HFA.AER.AD INH PRN (15:30)
[2019-09-25] MEDS ORDERED: TRAMADOL HCL 50 MG TABLET PO PRN (15:30)
[2019-09-25] MEDS ORDERED: HYDROmorphone INJ 0.5 MG/0.5 ML SYR IV PRN (15:30)
[2019-09-25] MEDS ORDERED: ALUMINUM/MAGNESIUM SUSP 30 ML UDC PO PRN (15:30)
[2019-09-25] MEDS ORDERED: EPINEPHRINE ADULT AUTO-INJECT 0.3 MG SYR IM PRN (15:30)
[2019-09-25] MEDS: SODIUM CHLORIDE 0.9% 1000ML 1,000 ML IV SCH (15:47)
[2019-09-25] MEDS: FERROUS GLUCONATE 324 MG TAB PO SCH (16:41)
[2019-09-25] MEDS: KETOROLAC TROMETHAMINE 15 MG/ML VIAL IV SCH ×2 (16:41→21:39)
[2019-09-25] MEDS: ASCORBIC ACID 500 MG TAB PO SCH (16:41)
[2019-09-25] MEDS: CEFAZOLIN 1000MG 1,000 MG/7.5 ML SYR IV SCH (18:38)
[2019-09-25] MEDS ORDERED: TRANEXAMIC ACID / 0.7% NACL 1,000 MG/100 ML BAG IV SCH (20:30)
[2019-09-25] MEDS: FAMOTIDINE 20 MG TAB PO SCH (21:38)
[2019-09-25] MEDS: METOPROLOL TARTRATE 50 MG TAB PO SCH (21:38)
[2019-09-25] MEDS: DOCUSATE SODIUM 100 MG CAP PO SCH (21:39)
[2019-09-25] MEDS: FLECAINIDE ACETATE 100 MG TABLET PO SCH (21:39)
[2019-09-25] MEDS: MONTELUKAST SODIUM 10 MG TABLET PO SCH (21:39)
[2019-09-25] MEDS: SENNA 8.6 MG TAB PO SCH (21:39)
[2019-09-25] MEDS: MULTIVITAMIN TAB PO SCH (21:39)
[2019-09-25] MEDS: ACETAMINOPHEN 500 MG TAB PO SCH (21:39)
[2019-09-25] MEDS: ONDANSETRON INJ 2 MG/ML 2 ML VIAL IV PRN (21:49)
[2019-09-26] MEDS: SODIUM CHLORIDE 0.9% 1000ML 1,000 ML IV SCH (01:43)
[2019-09-26] MEDS: KETOROLAC TROMETHAMINE 15 MG/ML VIAL IV SCH ×2 (03:12→09:00)
[2019-09-26] MEDS: CEFAZOLIN 1000MG 1,000 MG/7.5 ML SYR IV SCH (03:12)
[2019-09-26] MEDS: ACETAMINOPHEN 500 MG TAB PO SCH ×3 (05:40→21:52)
[2019-09-26 06:04] LABS: Hemoglobin 11.3 g/dL (12.0-16.0); Mean Corpuscular Hemoglobin 31.2 pg (25-34); Mean Corpuscular Hgb Conc 33.2 g/dL (32-36); Mean Corpuscular Volume 93.9 fL (80-100); Mean Platelet Volume 9.3 fL (7.4-10.4); Platelet Count 185 K/uL (130-400); RDW Coefficient of Variation 12.4 % (11.5-14.5); RDW Standard Deviation 42.5 fL (36.4-46.3); Red Blood Count 3.62 M/uL (4.2-5.4); White Blood Count 5.68 K/uL (4.8-10.8)
[2019-09-26 06:37] LABS: BUN Creatinine Ratio 15.5 (10-20); Calcium 7.9 mg/dl (8.5-10.1); Creatinine Clr Calc Pharmacy 74.6 ml/min; Est GFR (African American) 95.4; Est GFR (Non-African American) 82.3; Potassium 3.7 mmol/L (3.5-5.1)
--- NOTE | 2019-09-26 07:17 | Orthopedic Progress Note ---
Date of Service September 26, 2019 Assessment & Plan (1) Status post total left knee replacement: Continue PT OT. She is weightbearing as tolerated. Her pain is well controlled at this point. Continue ROXANA stockings SCDs for DVT prophylaxis. She is also on Eliquis. continue discharge planning. She was seen and examined by Dr. Yepez today. Subjective 64-year-old female postop day 1 from left total knee replacement. She is doing well this morning. She denies any pain. No new complaints. Physical Exam Physical Exam: She is alert and oriented. No distress. She sitting up in bed. Dressings clean dry and intact her left lower extremity. Stable dorsiflex plantarflex appropriately. She is neurovascular intact. Vital signs are stable . Results & Data Vital Signs (Past 12 Hours) Vital Signs Temp Pulse Resp BP Pulse Ox 09/26/19 06:36 36.8 C 72 14 100/61 97 09/25/19 23:29 37.0 C 78 14 105/61 95 09/25/19 21:36 37.2 C 76 18 119/74 100 PG Care Time/CCT Total # of Minutes Spent Total Time Spent with Patient: Total time spent is greater than 50% in coordination of care (as documented) at patient's floor/unit and/or counseling patient:
[2019-09-26] MEDS: MOMETASONE FUROATE 14 PUFF/1 INHALER INH SCH (08:50)
[2019-09-26] MEDS: FERROUS GLUCONATE 324 MG TAB PO SCH ×2 (08:53→16:24)
[2019-09-26] MEDS: OMEGA-3 (PURIFIED FISH OIL) 1 GM CAP PO SCH (08:53)
[2019-09-26] MEDS: ATORVASTATIN 10 MG TAB PO SCH (08:54)
[2019-09-26] MEDS: METOPROLOL TARTRATE 50 MG TAB PO SCH ×2 (08:54→21:53)
[2019-09-26] MEDS: DOCUSATE SODIUM 100 MG CAP PO SCH ×2 (08:54→21:53)
[2019-09-26] MEDS: FAMOTIDINE 20 MG TAB PO SCH ×2 (08:55→21:53)
[2019-09-26] MEDS: FLECAINIDE ACETATE 100 MG TABLET PO SCH ×2 (08:55→21:53)
[2019-09-26] MEDS: CHOLECALCIFEROL 1,000 UNITS TAB PO SCH (08:56)
[2019-09-26] MEDS: ASCORBIC ACID 500 MG TAB PO SCH ×2 (08:57→16:24)
[2019-09-26] MEDS ORDERED: NON-FORMULARY MEDICATION (Magnesium 250 MG) PO SCH (09:00)
[2019-09-26] MEDS ORDERED: ASCORBIC ACID 500 MG TAB PO SCH (09:00)
[2019-09-26] MEDS ORDERED: MULTIVITAMIN TAB PO SCH (09:00)
[2019-09-26] MEDS: ONDANSETRON INJ 2 MG/ML 2 ML VIAL IV PRN (12:45)
[2019-09-26] MEDS: APIXABAN 2.5 MG TAB PO SCH ×2 (14:39→21:53)
[2019-09-26] MEDS: MULTIVITAMIN TAB PO SCH (21:53)
[2019-09-26] MEDS: MONTELUKAST SODIUM 10 MG TABLET PO SCH (21:53)
[2019-09-26] MEDS: SENNA 8.6 MG TAB PO SCH (21:53)
[2019-09-27] MEDS: ACETAMINOPHEN 500 MG TAB PO SCH (05:34)
--- NOTE | 2019-09-27 08:17 | Progress Note ---
DATE: 09/27/2019 SUBJECTIVE: A 64-year-old white female postop day 2 from a left knee replacement. She is doing pretty well. She is having a little trouble lifting her leg and is a little frustrated by this. No chest pain or shortness of breath. Pain is controlled. Not feeling dizzy or lightheaded. OBJECTIVE: VITAL SIGNS: Temperature 37.3. Vital signs stable. GENERAL: Shows a pleasant, middle-aged female. She is lying in bed, looks reasonably comfortable. EXTREMITIES: Examination of the left leg reveals the leg to be well aligned. Dressing is clean, dry and intact. Calf is soft and supple. She is neurologically intact. She can dorsiflex and plantarflex her foot appropriately. ASSESSMENT: A 64-year-old white female postop day 2 from a left knee replacement, doing pretty well. She is having a little trouble lifting her leg which is normal. She can do postop, is a little frustrated by this, and I explained to her that that is pretty normal. Her pain is controlled. PLAN: 1. DVT prophylaxis including thigh-high TEDs, SCDs, and aspirin twice a day. 2. PT/OT. Weight bear as tolerated. Left total knee protocol. 3. Pain control, doing well with current pain regimen. 4. Disposition: Plan to discharge to home with some home health later today.
[2019-09-27] MEDS: OMEGA-3 (PURIFIED FISH OIL) 1 GM CAP PO SCH (08:57)
[2019-09-27] MEDS: APIXABAN 2.5 MG TAB PO SCH (08:58)
[2019-09-27] MEDS: FERROUS GLUCONATE 324 MG TAB PO SCH (08:58)
[2019-09-27] MEDS: ATORVASTATIN 10 MG TAB PO SCH (08:58)
[2019-09-27] MEDS: DOCUSATE SODIUM 100 MG CAP PO SCH (08:58)
[2019-09-27] MEDS: CHOLECALCIFEROL 1,000 UNITS TAB PO SCH (08:58)
[2019-09-27] MEDS: METOPROLOL TARTRATE 50 MG TAB PO SCH (08:59)
[2019-09-27] MEDS: MOMETASONE FUROATE 14 PUFF/1 INHALER INH SCH (08:59)
[2019-09-27] MEDS: FAMOTIDINE 20 MG TAB PO SCH (08:59)
[2019-09-27] MEDS: FLECAINIDE ACETATE 100 MG TABLET PO SCH (08:59)
[2019-09-27] MEDS: ASCORBIC ACID 500 MG TAB PO SCH (08:59)
--- NOTE | 2019-09-30 22:54 | Discharge Summary ---
ADMITTING PHYSICIAN AND SURGEON: Dr. Shar Yepez. ADMITTING DIAGNOSIS: Left knee degenerative joint disease. SURGERY PERFORMED: Left total knee arthroplasty. SECONDARY DIAGNOSES: Atrial fibrillation, asthma, gastroesophageal reflux disease, osteoarthritis. CONSULTS: None obtained. HISTORY AND PHYSICAL EXAMINATION: Well documented in the patient's chart. HOSPITAL COURSE: The patient was admitted on 09/25/2019, underwent total knee arthroplasty, tolerated the procedure well. There were no complications. She was transferred to the PACU postoperatively and later to the orthopedic floor for further care. She was given Ancef for antibiotic prophylaxis, ROXANA stockings, SCDs and Eliquis for DVT prophylaxis. Hemoglobin, hematocrit and vital signs were monitored during her hospital stay and remained stable. She did not require any blood transfusions. There were no complications. By postoperative day 2, she was tolerating a regular diet, pain was controlled with oral pain medicine and she was participating in physical therapy. By postop day 2, she was discharged home, set up with home health services. She was given printed discharge instructions as well as new prescriptions for extra strength Tylenol and tramadol. Continue her home medicines. Continue physical therapy, weightbearing as tolerated, ROXANA stockings. Follow up approximately 2 weeks postop or sooner if there are any problems or concerns.
== END 2019-09-27 13:53 | disposition home health service (06) | DRG 470 ==
LOC: ASU 09:54 → 3E 14:40

== ENCOUNTER 2023-12-27 10:46 | Observation (INO) ==
--- NOTE | 2023-12-20 12:17 | Anesthesiology Consultation ---
Date of Service December 20, 2023 Assessment & Plan (1) Encounter for pre-operative examination: Plan - cardiology office visit 08/16/23 [place]: "...Paroxysmal atrial fibrillation: Occasional, short-lived palpitations. She believes that her A-fib/symptom burden has significantly improved with flecainide. She does not wish to further titrate flecainide. Continue flecainide 50 mg twice daily. Continue beta- rebecca. Continue anticoagulation for stroke risk reduction...Hyperglycemia: Glucose was only one-point elevated. She would like to pursue A1c and therefore it was ordered to be done in 6 months. Ultimately, defer any treatment, if appropriate, to her PCP...Preoperative cardiac assessment: Has upcoming knee surgery. Low risk from a cardiac perspective. ECG performed in the office today and stable. She should remain on flecainide and metoprolol throughout the perioperative period, without interruption. Can hold anticoagulation therapy 2 days prior to surgery, which can be resumed when safe from a surgical standpoint, to be determined by her surgeon..." Per PAT notation 08/28/23: " Patient followed-up with [facility] (Dr. Marcos) 08/28/23 who advised her that it was okay to hold Apixaban/Eliquis 72 hours prior to surgery from cardiac perspective." - Outpatient joint assessment: Patient is currently scheduled for inpatient pathway. If re-evaluated and patient/surgeon requests outpatient pathway, patient is acceptable candidate for outpatient joint program from anesthesia standpoint pending surgeon's office assessment of pt motivation/support/completion of same day joint program preop requirements. - surgery postponed by patient after being cleared 08/28/23 for personal reasons to chart review. - Per charge loader on 12/14/23: No known infectious disease contacts, current infectious disease symptoms in past 10 days or COVID positive test result in the past 30 days. Chart Review Chart Review: Acceptable Risk for Surgery and Patient NOT seen in Pre Admission Testing History Surgery Operation Date: 12/27/23 12:30 Proposed Procedures p Right Total Knee Arthroplasty - Shar Yepez MD Height/Weight Height: 5 ft 3 in Weight: 75.75 kg Allergies Allergy/AdvReac Type Severity Reaction Status Date / Time banana Allergy Severe Anaphylaxis Verified 12/14/23 12:12 bee venom protein (honey bee) Allergy Severe Anaphylaxis Verified 12/14/23 12:12 chocolate flavor Allergy Severe Anaphylaxis Verified 12/14/23 12:12 erythromycin base Allergy Severe Hives Verified 12/14/23 12:12 gadobutrol [From Gadavist] Allergy Severe Anaphylaxis Verified 12/14/23 12:12 Iodinated Contrast Media Allergy Severe Anaphylaxis Verified 12/14/23 12:12 peanut Allergy Severe Anaphylaxis Verified 12/14/23 12:12 Penicillins Allergy Severe Hives Verified 12/14/23 12:12 Pork/Porcine Containing Allergy Severe Legs/Feet Verified 12/14/23 12:12 Products Swelling shellfish derived Allergy Severe Feet/hand Verified 12/14/23 12:12 swelling tetracycline Allergy Severe Hives Verified 12/14/23 12:12 venom-wasp protein Allergy Severe Wasp/hornet- Verified 12/14/23 12:12 Anaphylaxis latex Allergy Mild Rash Verified 12/14/23 12:12 acetaminophen Allergy Unknown Dizzy, Verified 12/14/23 12:12 [From WeroLewis] vertigo iodine Allergy Unknown Denies Verified 12/14/23 12:12 topical reaction to Iodine propoxyphene AdvReac Severe Dizzy, Verified 12/14/23 12:12 vertigo soy AdvReac Severe Vaginal Verified 12/14/23 12:12 hemorrhage Sulfa (Sulfonamide AdvReac Severe "Inflammati Verified 12/14/23 12:12 Antibiotics) on" shingles vaccine Allergy Unknown Throat Uncoded 12/14/23 12:12 swelling, shingles outbreak (with second shot) Medications Home Medications Medication Instructions Recorded Confirmed Last Taken ascorbic acid (vitamin C) 500 mg 500 mg PO QAM 02/16/19 12/14/23 06/30/23 capsule cholecalciferol (vitamin D3) 25 3,000 unit PO QAM 02/16/19 12/14/23 06/30/23 mcg (1,000 unit) capsule (Vitamin D3) epinephrine 0.3 mg/0.3 mL 0.3 mg IM UD PRN Anaphylaxis 02/16/19 12/14/23 Unknown injection, auto-injector (EpiPen) mometasone 110 mcg/actuation(30 2 puff inhalation QA 02/16/19 12/14/23 07/03/23 doses) breath activated powder inhaler ([facility]manex [facility]) montelukast 10 mg tablet 10 mg PO PM 02/16/19 12/14/23 07/03/23 20:00 (Singulair) multivitamin 1 tab PO QPM 02/16/19 12/14/23 06/30/23 omega 7-ipf-xja-fish oil 1,000 mg 1 cap PO QAM 02/16/19 12/14/23 06/30/23 (120 mg-180 mg) capsule (Fish Oil) levalbuterol tartrate 45 1 puffs inhalation Q4H PRN Wheezing 06/24/19 12/14/23 Unknown mcg/actuation aerosol inhaler (Xopenex HFA) apixaban 5 mg tablet (Eliquis) 5 mg PO BID #180 tabs 07/03/19 12/14/23 06/30/23 metoprolol tartrate 50 mg tablet 50 mg PO BID #180 tabs 07/03/19 12/14/23 07/04/23 06:00 (Lopressor) atorvastatin 40 mg tablet 40 mg PO HS 11/04/21 12/14/23 07/03/23 20:00 magnesium 250 mg tablet 375 mg PO QAM 02/21/23 12/14/23 06/30/23 clindamycin HCl 300 mg capsule 600 mg PO UD PRN pre dental 06/26/23 12/14/23 Unknown flecainide 50 mg tablet 50 mg PO BID 06/26/23 12/14/23 07/04/23 06:00 albuterol sulfate 90 mcg/actuation 1 inh inhalation QID PRN sob 08/23/23 12/14/23 Unknown aerosol inhaler cimetidine 400 mg tablet 400 mg PO BID 08/23/23 12/14/23 Unknown Past Medical History Medical History Esophageal problem 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 Dyslipidemia Hypertension Paroxysmal atrial fibrillation Osteoarthritis Hiatal hernia GERD (gastroesophageal reflux disease) Migraine Asthma Past Family History Family History Uncle Family history of diabetes mellitus Family hx of colon cancer Uncle Family history of diabetes mellitus Family hx of colon cancer Aunt Family hx of colon cancer Aunt Family hx of colon cancer Father Cardiac pacemaker Hearing loss Cancer History of heart valve replacement Mother Uterine leiomyoma Past Surgical History Surgical History History of anesthesia reaction Nausea and vomiting after administration of anesthetic agent Family history of reaction to anesthesia Hx of colonoscopy with polypectomy History of endoscopy Status post left knee replacement H/O oral surgery History of breast biopsy History of dilatation and curettage History of appendectomy History of laparotomy History of open reduction and internal fixation (ORIF) procedure Social History Smoking Status: Never smoker Do You Dip or Chew Tobacco: No Hx Alcohol Use: No Hx Substance Use: No substance use type: does not use Lab Results Anesthesia Preop Results Results Anesthesia Widget: WBC 4.15 K/ul (4.8-10.8) L 12/15/23 Hgb 13.9 g/dl (12.0-16.0) 12/15/23 Hct 41.0 % (37.0-47.0) 12/15/23 Plt 271 K/uL (130-400) 12/15/23 Na 139 mmol/L (136-145) 12/15/23 K 4.0 mmol/L (3.5-5.1) 12/15/23 Cl 106 mmol/L (98-107) 12/15/23 CO2 25 mmol/L (21-32) 12/15/23 BUN 24 mg/dl (6-23) H 12/15/23 Creat 0.83 mg/dl (0.6-1.2) 12/15/23 Glucose Level 111 mg/dl (70-99(Fasting)) H 12/15/23 PT 11.1 Seconds (9.0-12.0) 12/15/23 PTT 31 Seconds (21-31) 12/15/23 INR 1.0 (0.9-1.1) 12/15/23 Blood Type O Positive 12/15/23 Antibody Screen NEGATIVE 12/15/23 Testing Electrocardiogram Date: 08/17/23 Sinus rhythm with 1st degree AV block, rate 66 bpm Minimal voltage criteria for LVH Nonspecific T wave abnormality Chest X-Ray Date: 08/28/23 No acute process of the chest. Echocardiogram Date: 05/04/22 EF 60-65% Type 2 diastolic dysfunction No LV regional wall motion abnormalities No LVH Mild tricuspid regurgitation Stress Test Date: 11/14/17 MPHR 95% METS 7 Negative stress echo and ECG for ischemia EF 60-65% No LV regional wall motion abnormalities No LVH Type 1 diastolic dysfunction Mild mitral regurgitation
[~2023-12-27 10:46] MED LIST changes: -ACETAMINOPHEN 500 MG TAB PO SCH; +BUPIVACAINE 0.25% PF 30 ML VIAL ONE; -BUPIVACAINE LIPOSOME/PF 266 MG, BUPIVACAINE/EPINEPHRINE 50 ML, SODIUM CHLORIDE 0.9% 30 ... INFIL SCH; -CEFAZOLIN 2000MG 2,000 MG/15 ML SYR IV SCH; +CeleBREX 200 MG CAP PO SCH; -FAMOTIDINE 20 MG TAB PO SCH; -GABAPENTIN 300 MG CAP PO SCH; -LR 500ML BOLUS, THEN 15ML/HR IV SCH; -LR 60ML/HR IV SCH; -METOCLOPRAMIDE HCL 10 MG TABLET PO SCH; -ROPIVACAINE 0.5% 5 MG/ML 30 ML VIAL ONE; -SODIUM CHLORIDE 0.9% 1000ML IV SCH; -TRANEXAMIC ACID 1,000 MG **IV Intra-op IV SCH
[2023-12-27] MEDS ORDERED: Nursing to Pharmacy Communication SCH (11:00)
--- NOTE | 2023-12-27 11:01 | History & Physical Bridge Note ---
Date of Service December 27, 2023 History & Physical Bridge Note I have examined the patient, reviewed the History & Physical and in the interval since the performance of the History & Physical I have noted the following changes of clinical significance: no changes noted
[2023-12-27] MEDS ORDERED: ROPIVACAINE 0.5% 5 MG/ML 30 ML VIAL ONE (11:05)
[2023-12-27] MEDS ORDERED: EPINEPHrine INJ 1 MG/ML AMP ONE (11:05)
[2023-12-27] MEDS ORDERED: LIDOCAINE 2% 2 ML VIAL/AMP(20MG/ML) INFIL ONE (11:26)
[2023-12-27] MEDS ORDERED: PROPOFOL IV EMULSION 10 MG/ML 20 ML VIAL IV ONE ×2 (11:26→13:35)
[2023-12-27] MEDS ORDERED: MIDAZOLAM HCL 1 MG/ML 2ML VIAL ONE (11:27)
[2023-12-27] MEDS: LR 500ML BOLUS, THEN 15ML/HR IV SCH (11:29)
[2023-12-27] MEDS: LR 60ML/HR IV SCH (11:29)
[2023-12-27] MEDS: Scopolamine 1 MG TDSY TD SCH (11:29)
[2023-12-27] MEDS: METOCLOPRAMIDE HCL 10 MG TABLET PO SCH (11:29)
[2023-12-27] MEDS: FAMOTIDINE 20 MG TAB PO SCH (11:30)
[2023-12-27] MEDS: dexAMETHasone**PF** 10 MG/ML VIAL IV SCH (11:30)
[2023-12-27] MEDS: ACETAMINOPHEN 500 MG TAB PO SCH ×2 (11:30→20:04)
[2023-12-27] MEDS: ALLERGY Noted to ORDERED Medication SCH (11:31)
[2023-12-27] MEDS ORDERED: ATROPINE SULFATE 0.1 MG/ML 10ML SYR IV PRN (11:58)
[2023-12-27] MEDS ORDERED: ePHEDrine sulfate 50 MG/ML AMP IV PRN (11:58)
[2023-12-27] MEDS ORDERED: fentaNYL citrate PF 100 MCG/2 ML VIAL IV PRN (11:58)
[2023-12-27] MEDS ORDERED: ONDANSETRON INJ 2 MG/ML 2 ML VIAL IV PRN ×2 (11:58→16:38)
[2023-12-27] MEDS ORDERED: HYDROmorphone INJ 2 MG/ML SYR/VIAL IV PRN (11:58)
[2023-12-27] MEDS: ceFAZolin 2000MG 2,000 MG/15 ML SYR IV SCH (12:59)
[2023-12-27] MEDS ORDERED: fentaNYL citrate PF 100 MCG/2 ML VIAL ONE (13:30)
[2023-12-27] MEDS ORDERED: ONDANSETRON INJ 2 MG/ML 2 ML VIAL ONE (13:35)
[2023-12-27] MEDS: ROPIV 0.5% 246mg, Ketorolac 30mg, EPINEPHrine 0.5mg in NSS INFIL SCH (13:36)
[2023-12-27] MEDS: TRANEXAMIC ACID 1,000 MG **IV Intra-op IV SCH (14:00)
[2023-12-27] MEDS ORDERED: ePHEDrine sulfate 50 MG/ML AMP ONE (14:05)
--- NOTE | 2023-12-27 14:58 | Operative Report ---
PG Post Operative Report Pre & Post Diagnosis Operation Date: 12/27/23 12:30 Pre-Op Diagnosis: Right Knee Degenerative Joint Disease Post-Op Diagnosis: Right Knee Degenerative Joint Disease I identified the patient and participated in the time-out.: Yes Procedure Operation Date: 12/27/23 12:30 Actual Procedures p Right Total Knee Arthroplasty(Right) - Shar Yepez MD Surgeon Shar Yepez MD Primer Charging Tool Setter Kt Godinez PA-C Estimated Blood Loss 50 Findings Consistent with Post-Op Diagnosis Operative findings were advanced right knee DJD. She had extensive grade 4 [id number] disease of the medial and patellofemoral compartments. Moderate- sized joint effusion. Specimens Right knee sent for pathology. Anesthesia Type Spinal MAC Complications none Disposition Accompanied Patient To Recovery: No Indications Patient is a 68-year-old female is had a long history of knee problems with gradually gotten worse over time. She had her left knee replaced back in 2019 and is done well from this. Over the past several years she developed increased pain discomfort in her right knee. She failed conservative measures. She elected proceed with total knee arthroplasty. Description of Procedure Operative implants consist of: 1. Biomet Vanguard size 65 right posterior stabilized femoral component. 2. Biomet size 67 tibial tray. 3. 10 mm post stabilized polyethylene insert. 4. 31 x 8 all poly patella. The patient was taken the op room, identified, placed on the operative table in the supine position. All contact areas were appropriately padded. IV antibiotic 5 by anesthesia team. A spinal anesthetic and been implemented holding area. May catheter was placed in sterile fashion. A right thigh tourniquet was then placed in the right lower extremity then prepped and draped in usual sterile fashion. The right leg was elevated exsanguinated with use of an Esmarch and a turn was placed at 300 mmHg. Upon beginning the surgery the patient was feeling this so a general laryngeal mask anesthetic was implemented. We proceeded with the surgery. Sharp dissection was carried through subcutaneous tissue down the extensor mechanism. A medial parapatellar arthrotomy incision was made. Some subperiosteal dissection was carried out medially. The fat pad was dissected from Neath patella tendon. Lateral patellofemoral ligament was released. The patella was subluxated laterally and the knee was flexed. The osteophyte taken off distal femur. The ACL and PCL were then released from the distal femur and tibia subluxated yearly. The external tibial alignment jig was then placed in the anterior face of the tibia which was about 8 mm medially.. Proximal tibial cut was made remove about 2 to 3 mm of bone from the medial side. Tibia sized to a size 67. Attention drawn the femur. The distal femur examined the sharp drop with intramedullary canal was suction. A right 5 degree valgus cutting guide was placed. The distal femoral cutting block was pinned in place. This femoral cut was made to take an additional 3 mm of bone off distal femur. The femur was then sized to a size 65. We did downsize this almost an entire size. The AP cutting block was pinned parallel to the epicondylar axis which was 4 degrees of external rotation. The anterior cut, anterior chamfer, posterior cut, posterior chamfer cuts were made. The box cutting guide was placed in just slight lateral box cut was made. The knee was flexed. The remnants of the medial and lateral menisci were excised. The osteophytes taken off the posterior aspect of femur. A trial femoral component was placed. The tibial tray was pinned Addie external rotation and the drill and stem punch were used. Defect in proximal tibia for the tibial tray. The knee was then trialed and the 10 mm insert fit most appropriately. Attention drawn the patella. The patella was cleaned of all soft tissue. Patella thickness measured 21 mm in thickness was cut down to 13. Was sized to a size 31 patella. The lug holes were drilled for 31 patella. The lateral osteophyte was removed. Patella button was placed. Knee was taken through range of motion patella tracked nicely with no thumbs test. Attention drawn to place the permanent components. All trial components were removed. Bone plug was placed into this femur limit blood loss. Double batch Pal[place]os G cement was mixed. A Biomet Vanguard size 65 right Po stabilized femoral component, size 67 tibial tray, a 10 mm post stabilized polyethylene insert, and a 31 x 8 all poly patella were then cemented in place. Knee was brought out into full extension till cement hardened. Final symmetrical exam performed. The pericapsular tissues were injected with total of 100 cc of orthopedic joint mix. The patient did receive 1 g tranexamic acid. The tourniquet was then let down for final tourniquet time of 54 minutes. Hemostasis assured use electrocautery. Extensor Meclomen closed with combination 1 PDS suture #1 Vicryl suture in a [id number] fashion. Extensor Meclomen checked found to be intact through the subcutaneous tissues then closed with 2 Dexon suture in a buried interrupted fashion skin was closed skin marcus. Leg was then cleaned and dried and sterile dressing was Xeroform, 4 fours, sterile cast padding and Jack bandage were applied. Patient then transferred to the recovery room in stable condition. Patient tolerated procedure well and there were no complications. Osito Godinez, my physician management assistant, was present for the entire procedure. His assistance was required for proper patient positioning, prepping and draping, surgical exposure, retraction, perform the technical details of the operation, placement of the implants, closure of the incision site and placement of sterile bandage. I attest to the content of the Intraoperative Record and any orders documented therein. Any exceptions are noted below.
--- NOTE | 2023-12-27 15:48 | XRay Report ---
XR knee RT 1 or 2V routine CLINICAL HISTORY: Postoperative evaluation. COMPARISON: Right knee radiographs June 26, 2023. FINDINGS: Alignment of the total right knee arthroplasty is anatomic. There is no periprosthetic fra cture or unexpected radiopaque foreign body. There are skin marcus. IMPRESSION: Expected findings following total right knee arthroplasty. ACT 112: Negative or not required by law. Electronically signed by: Carlos Manuel Ferreira M.D. 12/27/2023 3:47 PM
--- NOTE | 2023-12-27 15:55 | Anesthesiology Progress Note ---
Date of Service December 27, 2023 Anesthesia Post Procedure Vital Signs Vital Signs: Temp Pulse Pulse Resp BP Pulse Ox O2 Del Method 12/27/23 15:45 36.7 C 84 20 126/70 96 Room Air 12/27/23 15:30 81 15 132/69 94 Room Air 12/27/23 15:20 82 17 129/68 97 Room Air 12/27/23 15:10 79 18 125/65 100 Oxymask 12/27/23 15:00 81 14 123/66 100 Oxymask 12/27/23 14:52 37.2 C 84 12 123/61 99 Oxymask 12/27/23 11:20 36.9 C 81 20 148/83 H 96 Room Air O2 Flow Rate 12/27/23 15:45 12/27/23 15:30 12/27/23 15:20 12/27/23 15:10 4 12/27/23 15:00 6 12/27/23 14:52 8 12/27/23 11:20 Pain Intensity Right Leg: Pain Intensity: 3 Transfer of Care Handoff Completed per policy Notes Mental Status: alert / awake / arousable Patient Amnestic to Procedure: Yes Nausea / Vomiting: adequately controlled Pain: adequately controlled Airway Patency, RR, SpO2: stable & adequate BP & HR: stable & adequate Hydration State: stable & adequate Anesthetic Complications: no major complications apparent
[2023-12-27] MEDS ORDERED: NALOXONE HCL 0.4 MG/1 ML VIAL/CARP IV PRN (16:38)
[2023-12-27] MEDS ORDERED: ALBUTEROL HFA 8 GM INHALER INH PRN (16:38)
[2023-12-27] MEDS ORDERED: ALUMINUM/MAGNESIUM SUSP 30 ML UDC PO PRN (16:38)
[2023-12-27] MEDS ORDERED: METOCLOPRAMIDE HCL INJ 5 MG/ML 2 ML VIAL IV PRN (16:38)
[2023-12-27] MEDS ORDERED: bisacodyL 10 MG SUPP PR PRN (16:38)
[2023-12-27] MEDS ORDERED: LEVALBUTEROL TARTRATE 15 GM HFA.AER.AD INH PRN (16:38)
[2023-12-27] MEDS ORDERED: EPINEPHrine INJ 1 MG/ML AMP IM PRN (16:38)
[2023-12-27] MEDS ORDERED: traMADol HCL 50 MG TABLET PO PRN (16:38)
[2023-12-27] MEDS ORDERED: MAGNESIUM HYDROXIDE SUSP 30 ML UDC PO PRN (16:38)
[2023-12-27] MEDS ORDERED: HYDROmorphone INJ 0.5 MG/0.5 ML SYR IV PRN (16:38)
[2023-12-27] MEDS: ORTHO JOINT ANESTHETIC ONE (16:39)
[2023-12-27] MEDS: ceFAZolin 2,000 MG/15 ML IV PUSH IV ONE (16:39)
[2023-12-27] MEDS: KETOROLAC TROMETHAMINE 15 MG/ML VIAL IV SCH (17:06)
[2023-12-27] MEDS: SODIUM CHLORIDE 0.9% 1,000 ML IV SCH (17:06)
[2023-12-27] MEDS: Scopolamine CHECK PATCH PLACEMENT SCH (17:07)
[2023-12-27] MEDS: ASCORBIC ACID 500 MG TAB PO SCH (18:34)
[2023-12-27] MEDS: TRANEXAMIC ACID / 0.7% NACL 1,000 MG/100 ML BAG IV SCH (20:04)
[2023-12-27] MEDS: ceFAZolin 1000MG 1,000 MG/7.5 ML SYR IV SCH (20:04)
[2023-12-27] MEDS: SENNA 8.6 MG TAB PO SCH (20:05)
[2023-12-27] MEDS: ATORVASTATIN 40 MG TAB PO SCH (20:05)
[2023-12-27] MEDS: MONTELUKAST SODIUM 10 MG TABLET PO SCH (20:05)
[2023-12-27] MEDS: DOCUSATE SODIUM 100 MG CAP PO SCH (20:05)
[2023-12-27] MEDS: METOPROLOL TARTRATE 50 MG TAB PO SCH (20:14)
[2023-12-27] MEDS: FLECAINIDE ACETATE 100 MG TABLET PO SCH (20:14)
[2023-12-27] MEDS ORDERED: NON-FORMULARY MEDICATION (Multivitamin Tablet) PO SCH (21:00)
[2023-12-27] MEDS ORDERED: SENNA 8.6 MG TAB PO SCH (21:00)
[2023-12-28 06:24] LABS: Hematocrit (blood only) 32.7 % (37.0-47.0); Hemoglobin 11.7 g/dl (12.0-16.0); Mean Corpuscular Hemoglobin 31.3 pg (25.0-34.0); Mean Corpuscular Hgb Conc 35.8 g/dL (32.0-36.0); Mean Corpuscular Volume 87.4 fL (80.0-100.0); Mean Platelet Volume 9.8 fL (9.4-12.4); Platelet Count 209 K/uL (130-400); RDW Coefficient of Variation 12.4 % (11.5-14.5); RDW Standard Deviation 39.7 fL (36.4-46.3); Red Blood Count 3.74 M/uL (4.20-5.40); White Blood Count 14.15 K/ul (4.8-10.8)
[2023-12-28 06:47] LABS: BUN Creatinine Ratio 23.4 (10-20); Calcium 8.5 mg/dl (8.6-10.3); Creatinine Clr Calc Pharmacy 67.3 ml/min; Est GFR (African American) 91.3 ml/min; Est GFR (Non-African American) 78.8 ml/min; Potassium 3.8 mmol/L (3.5-5.1)
[2023-12-28] MEDS: dexAMETHasone 10 MG in SYRINGE 0 ML IV SCH (09:57)
[2023-12-28] MEDS: FAMOTIDINE 40 MG TABLET PO SCH (09:59)
[2023-12-28] MEDS: MAGNESIUM OXIDE 400 MG TAB PO SCH (10:00)
[2023-12-28] MEDS: CHOLECALCIFEROL 25 MCG (1000 UNITS) TAB PO SCH (10:00)
[2023-12-28] MEDS: OMEGA-3 (PURIFIED FISH OIL) 1 GM CAP PO SCH (10:03)
[2023-12-28] MEDS: MULTIVITAMIN TAB PO SCH (10:03)
--- NOTE | 2023-12-28 10:03 | Orthopedic Progress Note ---
Date of Service December 28, 2023 Assessment & Plan (1) Status post right knee replacement: Overall, she is doing quite well today with good pain control to the right knee. She will work with physical therapy later this morning to work on range of motion exercises and ambulation. She is on Eliquis for DVT prophylaxis. She can be discharged home later this morning pending physical therapy evaluation. She will follow-up with Dr. Yepez in 2 weeks for postoperative management. Subjective .Ruma was seen and evaluated this morning resting comfortably in bed in no apparent distress. She notes she has been up and out of bed with no significant issues. She notes that her pain is well-controlled to the right knee. She has yet to work with physical therapy this morning. She denies any other concerns today. Review of Systems All systems reviewed & are unremarkable except as noted in HPI & below. Physical Exam . On physical examination of the right knee, dressings are clean, dry, and intact. Her leg is out in full extension. She has active plantarflexion dorsiflexion to the right ankle. +2 DP and PT pulses. Less than 2-second capillary refill. Normal sensation. Neurovascular intact. Results & Data Results & Data Laboratory Results . Diagnostic Findings . Postoperative x-rays of the right knee show prosthesis to be in anatomical alignment with no signs of fracture complication or loosening. PG Care Time/CCT Total # of Minutes Spent Total Time Spent with Patient: Total time spent is greater than 50% in coordination of care (as documented) at patient's floor/unit and/or counseling patient: Coding Level of Care Code 70665 Post Operative Follow-Up Diagnoses Status post right knee replacement Z96.651
[2023-12-28] MEDS: FLUTICASONE FUROATE 100MCG 14 PUFFS/INHALER INH SCH (10:04)
--- NOTE | 2023-12-28 10:07 | Discharge Summary ---
Date of Service December 28, 2023 Admission HPI (Per Admitting) On December 27, 2023, Ruma arrived at [facility] and underwent a right total knee arthroplasty performed by Dr. Yepez with no complications. She had a spinal anesthetic. Postoperatively, she was transferred to the PACU for immediate postoperative care and then transferred to the general orthopedic floor in stable condition. Her hospital course was uneventful. On postoperative day #1, her vital signs were stable and her pain was well- controlled. She was restarted on her Eliquis for DVT prophylaxis. She participated well with physical therapy working on ambulation and range of motion exercises. She was then discharged home in stable condition. She will follow-up with Dr. Yepez in 2 weeks for postoperative management. Principal Diagnosis Same as "Discharge Diagnosis" noted below under Discharge Instructions. Discharge Exam . On physical examination of the right knee, dressings are clean, dry, and intact. Her leg is out in full extension. She has active plantarflexion dorsiflexion to the right ankle. +2 DP and PT pulses. Less than 2-second capillary refill. Normal sensation. Neurovascular intact. Discharge Data Procedures Performed Operation Date: 12/27/23 12:30 Actual Procedures p Right Total Knee Arthroplasty(Right) - Shar Yepez MD Ordered Studies 12/27/23 05:00 US - OR guided needle placemen Routine PG Care Time/CCT Total # of Minutes Spent Total Time Spent with Patient: Total time spent is greater than 50% in coordination of care (as documented) at patient's floor/unit and/or counseling patient: Discharge Plan Discharge Items Patient Disposition: Home - Home Health Services Reason For Visit: RIGHT KNEE REPLACEMENT Discharge Diagnosis: Right Knee Replacement Activity: Per Instructions section Weightbearing: Full weightbearing Non-emergency contact: Surgeon Call non-emergency contact if: you have any medication questions Follow-up/Referrals: Stacie Abbott DO [Primary Care Provider] - Diet: Regular Addtl Attending Provider Instructions: ACTIVITY RECOMMENDATIONS: Physical Therapy: * You will go to physical therapy three times each week for four to six weeks after your surgery in order to regain your knee range of motion and to retrain your knee to work properly. * It is just as important to make sure you are getting your knee perfectly straight as it is to regain your knee bend. * Taking a pain pill an hour before therapy can help you have a more productive and comfortable therapy session. Home Exercise: * You were shown a series of exercises (heel props, heel slides, etc.) in the hospital. Do these exercises three to four times each day including the exercises you were shown in physical therapy. Walking: * Get up and walk several times each day. For the first four weeks, try not to stand or walk for more than one hour at a time. If you do stand or walk for more than one hour, you will not hurt anything, but your knee and leg will likely swell. * As you feel comfortable, you may change from the walker or crutches to a cane and then to independent walking. MEDICATIONS: New Medicine: * You will likely be taking one or more of these medications: 1. Tramadol - A quick and shorter-acting pain medication. Take one to two tablets every six hours to lessen your pain. 2. Eliquis - Thins your blood to lessen the chance of forming a blood clot. * The most common side effects of pain medicine and iron are nausea and constipation. If nausea or constipation is too much of a problem or if you have any questions about your new medicines or doses, call [facility] at . We will try to help you manage these issues. "VERY IMPORTANT TO READ AND REVIEW" Pain: * The immediate post-operative period after knee replacement surgery is often quite painful. * You are given a prescription for pain medicine. You should take it, as directed, when you need it, especially before physical therapy and before going to bed. Pain that interferes with sleep is very common and can last several months. * You will likely need pain medicine for the first four to six weeks. It will not stop all of the pain. The pain will lessen and as you feel better, you may change to milder pain medicine such as Tylenol. * The most common side effects of pain medicine are nausea and constipation, so don't take more than you need. SPECIAL CARE INSTRUCTIONS: TEDs/Elastic Stockings: * The white elastic stockings help limit swelling and prevent blood clots from forming in your legs. The more you wear them, the more they work. * Wear them for six weeks after knee replacement surgery and four weeks after partial knee replacement. Incision Site Care: * Remove dressing postoperative day 2 and then shower. Keep direct shower pressure off the incision site. * After showering, cover marcus with dry gauze and change daily or more frequently if the dressing is getting saturated with drainage. * Use the ROXANA stockings to hold dressing in place. DO NOT apply tape on the skin. * May completely stop using bandage if wound is dry and no drainage * [place] are removed between 2 and 3 weeks post-op. If your follow-up appointment is made before 2 weeks, please have your appointment re- scheduled. It is too early to remove the marcus. Prevention of Infection: * Take antibiotics one hour before any dental cleaning, dental work, urological procedure, gastrointestinal procedure or any invasive surgery in order to prevent your new joint from getting infected. * You may get the antibiotics from the doctor performing the procedure or you may call our office at [phone] before and we will call in a prescription to the pharmacy of your choice. Things to Watch For: * Drainage from the incision site that occurs more than one week after your surgery. * Severely increased knee/leg pain or swelling. * Increased redness at the incision site. * Fever above 102 degrees Fahrenheit. * Unusual chest pain or shortness of breath. * Unusual pain or burning with urination. Call [facility] at [phone] with any of the above problems or if you have any questions about your medicines or recovery. FOLLOW UP VISIT: Make an appointment to see your doctor for approximately two weeks after surgery for a progress check and staple removal by calling the office at [phone]. Pending Studies at Discharge: No Stand-Alone Forms: My [facility], Smoking Cessation Medications and DC Order Prescriptions: Continued Eliquis 5 mg tablet 5 mg PO BID Qty: 180 3RF metoprolol tartrate [Lopressor] 50 mg tablet 50 mg PO BID Qty: 180 3RF ondansetron 4 mg tablet,disintegrating 4 mg PO Q8 PRN (Reason: nausea) Qty: 20 1RF Rx Instructions: Take as needed for nausea sennosides [Senokot] 8.6 mg tablet 8.6 mg PO BID 14 Days Qty: 28 0RF Rx Instructions: Take two times a day to prevent/treat constipation acetaminophen [Tylenol Extra Strength] 500 mg tablet 1,000 mg PO TID 30 Days Qty: 180 0RF Rx Instructions: Take 3 times per day to lessen pain. cefadroxil 500 mg capsule 500 mg PO BID 7 Days Qty: 14 0RF Rx Instructions: Take 1 cap twice a day to prevent infection tramadol 50 mg tablet 50 - 100 mg PO Q6 PRN (Reason: pain) Qty: 40 0RF Rx Instructions: Take as needed for pain atorvastatin 40 mg tablet 40 mg PO HS levalbuterol tartrate [Xopenex HFA] 45 mcg/actuation HFA aerosol inhaler 1 puffs INH Q4H PRN (Reason: Wheezing) multivitamin Tablet 1 tab PO QPM montelukast [Singulair] 10 mg Tablet 10 mg PO PM epinephrine [EpiPen] 0.3 mg/0.3 mL Auto-Injector 0.3 mg IM UD PRN (Reason: Anaphylaxis) cholecalciferol (vitamin D3) [Vitamin D3] 1,000 unit Capsule 3,000 unit PO QAM Asmanex Twisthaler 110 mcg (30 doses) aerosol powdr breath activated 2 puff inhalation QAM omega [id number] oil [Fish Oil] 1,000 mg (120 mg-180 mg) Capsule 1 cap PO QAM ascorbic acid (vitamin C) 500 mg Capsule 500 mg PO QAM magnesium 250 mg tablet 375 mg PO QAM Patient Comments: split between 2 doses daily cimetidine [Tagamet] 400 mg Tablet 400 mg PO BID Rx Instructions: administer with meals albuterol sulfate 90 mcg/actuation Hfa Aerosol Inhaler 1 inh INHALATION QID PRN (Reason: sob) clindamycin HCl 300 mg capsule 600 mg PO UD PRN (Reason: pre dental) Rx Instructions: TAKE TWO CAPSULES ONE HOUR PRIOR TO DENTAL WORK flecainide 50 mg tablet 50 mg PO BID Admission Data Admit Date/Time: 12/27/23 14:56 Attending Provider: Shar Yepez Admit Provider: Shar Yepez Primary Care Provider: Stacie Abbott Other Providers: [employer]
[2023-12-28] MEDS ORDERED: APIXABAN 2.5 MG TAB PO SCH (15:00)
== END 2023-12-28 13:15 | disposition home health service (06) ==
LOC: ASU 10:46 → 3W 10:46